=== PATIENT | male | born 1955 | race African-American/Black ===

== ENCOUNTER 2019-11-17 10:22 | Inpatient (IN) | payer OTHER ==
[2019-11-17] VITALS (33 sets, daily range): BP systolic 86–119; BP diastolic 50–97
[~2019-11-17] VITALS: Ht 193 cm; Wt 80.6 kg
--- NOTE | ~2019-11-17 | EMS ---
[address] [address] EMS Patient Care Report Name: JOHN SWANSON Room #: 237-P ADM IN M.R.#: [id number] Admission: 11/17/19 Attend Phys: Joel Murphy MD Discharge: Date of : 53 Report #: [id number] THIS REPORT FOR: //name// Report Transmitted: 11/21/2019 08:26 EMS Care Summary [place], [place]/[facility] Incident [id number] @ 11/17/2019 09:50 Incident Location [address] [place] [address] Patient JOHN SWANSON Male, 64 Years 1955 Patient Address [address] [place] [address] Patient History Alzheimer's,Gastro-Esophageal Reflux Disease (GERD),Constipation,Dysphagia,Type 2 Diabetes, Patient Allergies No known allergies, Patient Medications Depakote, Senna, Albuterol, Chief Complaint Distended abdomen Disposition Transported No Lights/[place] Dispatch Reason Abdominal Pain/Problems Transported To [facility] Narrative Called to the scene for a sick. Upon arrival, pt was brought out to the ambulance via wheel chair by [place] Staff. The were concerned about a distended [address] [address] EMS Patient Care Report Name: JOHN SWANSON Room #: 237-P ADM IN Demarco#: [id number] Admission: 11/17/19 Attend Phys: Joel Murphy MD Discharge: Date of : 53 Report #: [id number] abdomen that was getting worse over a couple of days and a decrease in the SaO2. They had placed him on a simple facemask @ 2 lpm. Pt was moved to the EMS cot and loaded into the ambulance w/o incident. Vitals obtained. O2 increased to 8 lpm. Pt said he was breathing better. 4 Lead. En route; no changes. RR to [facility]. Vitals repeated. Arrived: pt taken to ER, pt care & report to ER staff. Initial Vitals @10:09P: 122,R: 47,[place] Suspected: false @10:07P: 118,R: 14,BP: 94/69,Pain: 2/10,GCS: 15,SpO2: 90,Revised Trauma: 12, @10:12P: 143,R: 20,BP: 97/72,GCS: 15,SpO2: 95,Revised Trauma: 12, Assessments @09:58MENTAL:Person Oriented,Time Oriented,Place Oriented,Event Oriented,SKIN:HEENT:LUNG SOUNDS:Left Upper: Distension,Right Lower: Distension,Right Upper: Distension,Right Upper: Tenderness,Left Lower: Distension,Right Upper: Other,ABDOMEN:Left Upper: Distension,Right Lower: Distension,Right Upper: Distension,Right Upper: Tenderness,Left Lower: Distension,Right Upper: Other,PELVIS//GI:EXTREMITIES:Left Leg: Other,Right Arm: Other,Right Leg: Other,Left Arm: Other,PULSE:Radial: 2+ Normal,NEURO: Impression Abdominal Pain Procedures @09:58ALS AssessmentResponse: UnchangedSucceeded@10:01StretcherResponse: Unchanged@PTAOxygen FlowRate: 2 Device: Simple Face Mask (SFM) Response: UnchangedFailed@10:05Oxygen FlowRate: 8 Device: Simple Face Mask (SFM) Response: ImprovedSucceeded Timeline RELIEF MAP MODELER,Oxygen FlowRate: 2 Device: Simple Face Mask (SFM) Response: UnchangedFailed, 09:47,Call Received 09:47,Dispatch Notified 09:50,Dispatched 09:51,En Route 09:57,On Scene 09:58,At Patient 09:58,ALS Assessment,Response: UnchangedSucceeded, 10:01,Stretcher,Response: Unchanged 10:05,Oxygen FlowRate: 8 Device: Simple Face Mask (SFM) Response: ImprovedSucceeded, 10:07,BP: 94/69 M,PULSE: 118,RR: 14 R,SPO2: 90 Ox,ETCO2: ,BG: ,PAIN: 2,GCS: 15, 10:09,BP: / M,PULSE: 122,RR: 47 R,SPO2: Ox,ETCO2: ,BG: ,PAIN: ,GCS: , 10:10,Depart Scene 10:12,BP: 97/72 M,PULSE: 143,RR: 20 R,SPO2: 95 Ox,ETCO2: ,BG: ,PAIN: ,GCS: 15, [address] [address] EMS Patient Care Report Name: JOHN SWANSON Room #: 237-P [facility] IN [facility]#: [id number] Admission: 11/17/19 Attend Phys: Joel Murphy MD Discharge: Date of : 53 Report #: [id number] 10:26,At Destination 10:36,Call Closed Disclaimer v1.1 Copyright 2020 [email or web address] This EMS Care Summary contains data elements from the applicable legal record (which may be displayed differently). It is designed to provide pertinent information for the following purposes: continuity of care, clinical quality, and state data reporting. The complete legal record is available to ED staff and administrators of the receiving hospital in [employer]'s Patient Tracker. All data is provided "as is."
--- NOTE | ~2019-11-17 | EKG ---
[facility] [place] [address] ELECTROCARDIOGRAM REPORT Name: JOHN SWANSON Room #: 237-P ADM IN M.R.#: [id number] Admission: 11/17/19 Attend Phys: Joel Murpyh MD Discharge: Date of : 53 Report #: [id number] THIS REPORT FOR: cc: FAM - Family physician unknown FAM - Family physician unknown Camelia Denise MD ~ THIS REPORT FOR: //name// [facility] Test Date: 2019-11-17 Test Time: 20:53:41 Pat Name: JOHN SWANSON Department: Room: 237 P Gender: M Refuge Worker: MARY : 1955 Requested By: Nita Villalta Order Number: [id number] MD: Measurements Intervals [place] Rate: 97 P: 52 KS: 131 QRS: -58 QRSD: 123 T: 32 QT: 382 QTc: 486 Interpretive Statements Sinus rhythm Probable left atrial enlargement RBBB and LAFB Baseline wander in lead(s) II,III,aVF Compared to ECG 05/20/2011 23:15:52 Left anterior fascicular block now present Right bundle-branch block now present Sinus tachycardia no longer present Ventricular premature complex(es) no longer present [email or web address] By: 52 52 Epiphany EpiphanyMD /NII
[~2019-11-17 10:22] MED LIST: AMBEREN; BACTRIM DS TAB1 EACH PO; CELEXA 20 MG TA20 M1 PO; CENTRUM MU9 MG/15 ML PT; CLONAZEPAM; CLONAZEPAM 0.50.5 M1; CLONAZEPAM PT; CYCLOBENZAPRINE10 MG; DUONEB 2.5-0.5 M3 ML; ENOXAPARIN40 MG/0.1 SUBQ; FENTANYL; FENTANYL1 EAC1 TOP; FERROUS SU PT; FERROUS SULFATE; FLEXERIL; FLEXERIL PT; FLUSH; GLUCERNA; GLUCERNA 1.2 PT; H20 FLUSH PT; HYCET 7.5 MG-3473 ML PT; HYDROCODON-ACE1 EAC8; IRON325 PO; JUVEN; LANTISEPTIC15 ML TP; MOM PT; MULTIVITAM9 MG/15 ML PT; OMEPRAZOLE20 M2 PO; PROSOURCE275 GM PT; SENNA CONCENTR8.6 MG; SENNA S TABLET1 EACH PER TUBE; THERA PLUS; TYLENOL EX167 MG/5 M PT; VITAMIN C; VITAMINC500; VITAMINC500 PT; XENADERM OINTME30 GM TP; ZINC SULFATE 2220 MG PT; [UNRECOGNIZED DRUG - OTHER] IN
[2019-11-17 10:58] LABS: HEMATOCRIT 47.9 % (42.0-52.0); HEMOGLOBIN 15.8 gm/dL (14.0-18.0); MCH 27.9 pg (26.0-34.0); MCHC 32.9 g/dL (28.0-37.0); MCV 84.8 fL (80.0-100.0); PLATELET COUNT 566 thou/uL (150-400); RBC 5.65 mil/uL (4.50-6.00); RDW 16.4 % (10.5-14.5); WBC 20.9 thou/uL (4.0-11.0)
[2019-11-17 11:06] LABS: CALCIUM 9.2 mg/dL (8.5-10.1); CREATININE 2.9 mg/dL (0.7-1.3); POTASSIUM 3.2 mmol/L (3.5-5.1)
[2019-11-17 11:09] LABS: BE(vivo) 1.4 mmol/L (-2 to +3); PCO2 32.4 mmHg (35.0-45.0); PO2 44.2 mmHg (80.0-100.0); pH 7.487 (7.360-7.450); sO2 84.2 % (92.0-98.0)
[2019-11-17 11:15] LABS: ABSOLUTE NEUTROPHILS 18.4 thou/uL (1.4-8.2); ATYPICAL LYMPHS 1 %
[2019-11-17 11:17] LABS: LARGE PLATELETS SEVERAL
[2019-11-17 11:44] LABS: URINE BLOOD 3+ (Negative); URINE CLARITY CLEAR; URINE GLUCOSE-RANDOM* TRACE (Negative); URINE KETONES 1+ (Negative); URINE NITRITE-REFLEX NEGATIVE (Negative); URINE PROTEIN (DIPSTICK) 3+ (Negative); URINE SPECIFIC GRAVITY 1.025 (1.005-1.035)
[2019-11-17 11:47] LABS: ICTOTEST (BILI CONFIRMATORY) Negative (Negative); URINE BILIRUBIN NEGATIVE (Negative); URINE LEUKOCYTES-REFLEX 3+ (Negative)
[2019-11-17 11:48] LABS: URINE COLOR BROWN
[2019-11-17 11:54] LABS: BACTERIA-REFLEX >30 Many /HPF (None Seen); CRYSTALS None Seen /LPF (None Seen); HYALINE CASTS 0-3 Few /LPF (None Seen); SQUAMOUS 0-3 Few /LPF (0-3); TRANSITIONAL EPITHEL CELL 0-3 Few /LPF (None Seen); URINE WBC-REFLEX >25 Many /HPF (0-5)
[2019-11-17] MEDS ORDERED: ALBUTEROL2.5 MG/0.1 INH (12:03)
[2019-11-17] MEDS ORDERED: DEPAKOTE125 MG PO (12:04)
[2019-11-17] MEDS ORDERED: TYLENOL325 MG PO (12:05)
[2019-11-17] MEDS ORDERED: VITAMIN D31250 MCG PO (12:07)
[2019-11-17 14:20] LABS: BE(vivo) -1.3 mmol/L (-2 to +3); HCO3 21.7 mmol/L (22.0-26.0); PCO2 31.6 mmHg (35.0-45.0); PO2 66.2 mmHg (80.0-100.0); pH 7.454 (7.360-7.450); sO2 94.2 % (92.0-98.0)
--- NOTE | 2019-11-17 16:44 | NUR ---
CONSULTED TO PLACE A CENTRAL LINE FOR A PATIENT ADMITTED TO ICU FOR SEPSIS AND COVID R/O. CONSENT AND ORDER NOTED. PATIENT IS SEDATED AND UNABLE TO RESPOND TO TEACHING. A #6F TRIPLE LUMEN POWER INJECTABLE JACC CENTRAL LINE WAS PLACED PER POLICY. LINE IS 25CM AND ADVANCED WITHOUT DIFFICULTY TO 7CM EXTERNAL. A STAT CHEST XRAY WAS ORDERED TO VERIFY PLACEMENT.
[2019-11-17 18:37] LABS: HEMATOCRIT 42.1 % (42.0-52.0); MCH 27.4 pg (26.0-34.0); MCV 85.5 fL (80.0-100.0); RBC 4.92 mil/uL (4.50-6.00); RDW 16.2 % (10.5-14.5); WBC 18.4 thou/uL (4.0-11.0)
[2019-11-17 18:39] LABS: CALCIUM 7.8 mg/dL (8.5-10.1); CREATININE 2.2 mg/dL (0.7-1.3)
[2019-11-17 18:41] LABS: POTASSIUM 2.7 mmol/L (3.5-5.1)
[2019-11-17 18:50] LABS: HEMOGLOBIN 13.5 gm/dL (14.0-18.0)
[2019-11-17 18:51] LABS: PLATELET COUNT 439 thou/uL (150-400)
[2019-11-17 19:19] LABS: ABSOLUTE NEUTROPHILS 16.6 thou/uL (1.4-8.2); ANISOCYTOSIS 1+; PLATELET ESTIMATE INCREASED
--- NOTE | 2019-11-17 19:49 | NUR ---
PT ARRIVED TO UNIT AT 1520. PT HAD NO PERSONAL BELONGING WITH HIM OTHER THAN JUDE LIFT SHEET UNDERNEATH HIM. SHEET REMOVED AND PLACED IN PT'S ROOM. PT DENIES PAIN AT THIS TIME. PT IS IN COVID RULE-OUT PRECAUTIONS. SCD'S PLACED. DORSEY ALREADY IN PLACE WITH MINIMAL UO. PT CHAIRLIFT OPERATOR STRIP PRINTED AND ON CHART. VASCULAR ACCESS NURSE HERE TO PLACE CENTRAL LINE. PT'S DPOA SISTER SASHA WAS CALLED AND SHE GAVE TELEPHONE CONSENT TO RN AND VASCULAR ACCESS NURSE.
--- NOTE | 2019-11-17 20:14 | NUR ---
DR. BECK GAVE ORDER TO PLACE NG TUBE. DR VORA WHILE ROUNDING ON PT STATED TO CONSULT GI AND NOT TO PLACE NG TUBE AT THIS TIME. DR BECK MADE AWARE AND STATED OK AND THAT HE AGREED NOT TO PLACE AT THIS TIME.
--- NOTE | 2019-11-17 21:04 | NUR ---
At shift change, pt went to extreme tachy at approximately 1926 in HR 160-170s for 9 mins. He then went to afib RVR HR 120-170s for less than two minutes. He then converted back to sinus rhythm. Nita MARTÍNEZ was notified and stat ekg was ordered. ekg was performed and results of SR with HR of 97 reported to EXAM PROCTOR. EXAM PROCTOR states to continue to monitor and report any further episodes. if problem persist they will consult cardiology and place pt on amio or cardizem drip
[2019-11-17 23:07] LABS: CALCIUM 7.7 mg/dL (8.5-10.1); CREATININE 1.7 mg/dL (0.7-1.3); POTASSIUM 3.5 mmol/L (3.5-5.1)
[2019-11-18] VITALS (32 sets, daily range): BP systolic 84–128; BP diastolic 56–76
[2019-11-18 04:53] LABS: BE(vivo) -2.2 mmol/L (-2 to +3); HCO3 23.3 mmol/L (22.0-26.0); PCO2 42.4 mmHg (35.0-45.0); PO2 70.6 mmHg (80.0-100.0); pH 7.357 (7.360-7.450); sO2 93.6 % (92.0-98.0)
[2019-11-18 06:16] LABS: ABSOLUTE NEUTROPHILS 14.6 thou/uL (1.4-8.2); HEMATOCRIT 37.2 % (42.0-52.0); HEMOGLOBIN 11.8 gm/dL (14.0-18.0); LYMPHOCYTES 4.1 % (24.0-44.0); MCH 27.3 pg (26.0-34.0); MCHC 31.8 g/dL (28.0-37.0); MCV 85.9 fL (80.0-100.0); MONOCYTES 7.6 % (1.0-8.0); PLATELET COUNT 399 thou/uL (150-400); POLYS 88.3 % (36.0-66.0); RBC 4.33 mil/uL (4.50-6.00); RDW 16.6 % (10.5-14.5); WBC 16.5 thou/uL (4.0-11.0)
[2019-11-18 06:34] LABS: CALCIUM 7.4 mg/dL (8.5-10.1); CREATININE 1.3 mg/dL (0.7-1.3); POTASSIUM 3.7 mmol/L (3.5-5.1)
[2019-11-18 06:39] LABS: ALBUMIN 2.2 g/dL (3.4-5.0); MAGNESIUM 2.1 mg/dL (1.8-2.4); TOTAL PROTEIN 5.9 g/dL (6.4-8.2)
--- NOTE | 2019-11-18 08:20 | EKG ---
[facility] [place] [address] ELECTROCARDIOGRAM REPORT Name: JOHN SWANSON Room #: 237-P ADM IN M.R.#: [id number] Admission: 11/17/19 Attend Phys: Joel Murphy MD Discharge: Date of : 53 Report #: [id number] THIS REPORT FOR: cc: FAM - Family physician unknown FAM - Family physician unknown Stefan Sandoval MD [facility] THIS REPORT FOR: //name// [facility] ED Test Date: 2019-11-17 Test Time: 10:42:21 Pat Name: JOHN SWANSON Department: Room: [facility] Gender: M Optimization Engineer: [facility] : 1955 Requested By: Dougie Prado Order Number: [id number] MD: Stefan Sandoval Measurements Intervals [place] Rate: 121 P: 46 NC: 131 QRS: -101 QRSD: 118 T: 19 QT: 322 QTc: 457 Interpretive Statements Sinus tachycardia ventricular premature complexes RBBB and LAFB Compared to ECG 05/20/2011 23:15:52 Premature ventricular complexes not present Left anterior fascicular block now present Right bundle-branch block now present Electronically Signed On 11-18-2019 8:18:03 CDT by Stefan Sandoval [email or web address] <ELECTRONICALLY SIGNED> By: Stefan Sandoval MD, [facility] 11/18/19 0818 1042 1042 Stefan Sandoval MD, [facility] /EPI
--- NOTE | 2019-11-18 08:28 | EKG ---
[facility] [place] [address] ELECTROCARDIOGRAM REPORT Name: KIKIKENNETHJOHN P Room #: 237-P ADM IN M.R.#: [id number] Admission: 11/17/19 Attend Phys: Joel Murphy MD Discharge: Date of : 53 Report #: [id number] THIS REPORT FOR: cc: FAM - Family physician unknown FAM - Family physician unknown Stefan Sandoval MD [facility] THIS REPORT FOR: //name// [facility] Test Date: 2019-11-17 Test Time: 20:53:41 Pat Name: JOHN SWANSON Department: Room: 237 P Gender: M Cw Operator: MARY : 1955 Requested By: Nita Villalta Order Number: [id number] MD: Stefan Sandoval Measurements Intervals [place] Rate: 97 P: 52 HI: 131 QRS: -58 QRSD: 123 T: 32 QT: 382 QTc: 486 Interpretive Statements Sinus rhythm RBBB and LAFB Baseline wander in lead(s) II,III,aVF Compared to ECG 05/20/2011 23:15:52 Sinus tachycardia no longer present Ventricular premature complex(es) no longer present Electronically Signed On 11-18-2019 8:26:11 CDT by Stefan Sandoval [email or web address] <ELECTRONICALLY SIGNED> By: Stefan Sandoval MD, [facility] 11/18/19825 52 52 Stefan Sandoval MD, [facility] /EPI
--- NOTE | 2019-11-18 14:02 | NUR ---
PATIENT AWAKE AND ORIENTED TO SELF THIS SHIFT. DOES NOT MAKE ANY ATTEMPT TO MOVE OR ASSIST IN MOVEMENT. PATIENT BECOMES AGITATED AND USES RIGHT HAND TO PUSH WHEN ATTEMPTING TO TURN PATIENT. NG TUBE WAS PLACED SUCCESSFULLY THIS SHIFT, PT COMBATIVE DURING PLACEMENT. VERIFIED WITH XRAY. INSTRUCTED TO LEAVE OFF SUCTION BY GI NATIONAL GUARD MEMBER UNTIL PT GI PROCEDURE COMPLETED. PT REMOVED NG TUBE BY SELF, NOTIFIED GI. PATIENT SCHEDULED FOR FLEX SIG THIS SHIFT, PHONE CONSENT OBTAINED BY DPOA. PT REMAINS ON 10L NC, O2 SATS >94%. FALL PRECAUTIONS IN PLACE.
--- NOTE | 2019-11-18 16:19 | NUR ---
INITIAL ASSESSMENT: NICK reviewed chart and spoke with nursing and attending physician. Pt was admitted from [facility] due to bowel obstruction/pnemonia. Pt is currently in the ICU. Pt is in Enhanced Isolation to r/o COVID-19. Pt's test is negative. Pt with hx of CVA/Alzheimer's/DM. Surgery and GI consulted. Pt to have flex-sig today. Pt is now a DNR. NICK spoke with pt's sister, Hernán, via phone. Introduced role of NICK. Pt lives in the terminal worker care unit at [facility] since 2010. Pt is total care at the facility. Pt's dtr had questions regarding pt's care at [facility]. SW offered to have the [facility] post-acute liaison follow up with her. Pt's sister agreeable. transit planner to fax clinical updates to [facility]. NICK notified [facility] liaison. The DON and/or Sql Database Programmer will reach out to pt's sister to follow up. NICK is following to assist as needed with discharge planning.
--- NOTE | 2019-11-18 21:54 | NUR ---
ASSUMED PT CARE AT 1900. PT FOLLWS COMMANDS; WILL SQUEEZ RIGHT HAND AND WIGGLE RIGHT TOES. NO MOVEMENT NOTED ON THE LEFT SIDE WHICH IS ALSO CONTRACTED. L EYE PUPIL IS DILATED AND FIXED AT 6CM WITH NO REACTION TO LIGHT NOTED. PT STATES INAPPROPRIATE WORDS AT TIMES.
[2019-11-19] VITALS (14 sets, daily range): BP systolic 72–152; BP diastolic 45–129
[2019-11-19 05:27] LABS: HEMATOCRIT 34.4 % (42.0-52.0); HEMOGLOBIN 10.9 gm/dL (14.0-18.0); MCH 27.3 pg (26.0-34.0); MCHC 31.6 g/dL (28.0-37.0); MCV 86.3 fL (80.0-100.0); RBC 3.99 mil/uL (4.50-6.00); RDW 16.6 % (10.5-14.5); WBC 16.7 thou/uL (4.0-11.0)
[2019-11-19 05:40] LABS: CALCIUM 7.3 mg/dL (8.5-10.1); CREATININE 0.9 mg/dL (0.7-1.3); POTASSIUM 3.1 mmol/L (3.5-5.1)
--- NOTE | 2019-11-19 14:16 | NUR ---
assumed care of pt at 0700. pt aox1 in no acute distress, complains of abdominal pain times - good relief with morphine. requiring 10L via HFNC. pulled out ng tube while restrained... hospitalist and preop notified. loose bm this morning. remains very contracted. otherwise voicing no concerns or complaints. spoke with sister alina by phone regarding plan of care. agreeable with surgery recommendations. plans for partial colectomy and colostomy this afternoon. emilym.
--- NOTE | 2019-11-19 14:48 | NUR ---
NICK reviewed chart and spoke with attending physician. Pt remains in ICU on 10L high flow O2. Pt will be made NPO at midnight and plan for partial colectomy and colostomy tomorrow per surgery. NICK updated [facility] post-acute liaison. NICK is following to assist as needed with discharge planning.
--- NOTE | 2019-11-19 15:00 | 2DMMODE ---
[facility] [address] [place] [place] [address] 2 D/M-MODE ECHOCARDIOGRAM Name: JOHN SWANSON Andres Room #: 237-P ADM IN M.R.#: [id number] Admission: 11/17/19 Attend Phys: Joel Murphy MD Discharge: Date of : 53 Report #: [id number] THIS REPORT FOR: cc: FAM - Family physician unknown FAM - Family physician unknown Stefan Sandoval MD [facility] ~ APPROVED REPORT Study performed: 11/19/2019 13:59:40 EXAM: Comprehensive 2D, Doppler, and color-flow Echocardiogram Patient Location: ICU Room #: [facility] Status: routine BSA: 2.04 HR: 77 bpm BP: 92/53 mmHg Other Information Study Quality: Technically Difficult Technically limited study due to lung disease, inability to position patient. Indications Diabetes Tachycardia 2D Dimensions IVSd: 11.16 (7-11mm) LVOT Diam: 21.32 (18-24mm) LVDd: 43.85 mm PWd: 11.29 (7-11mm) Ascending Ao: 29.14 (22-36mm) LVDs: 24.96 (25-40mm) Aortic Root: 33.47 mm IVC: 25.00 mm Aortic Valve AoV Peak Vega.: 1.25 m/s AO Peak Gr.: 6.20 mmHg LVOT Max P.02 mmHg LVOT Max V: 1.00 m/s NORMA Vmax: 2.87 cm2 Pulmonary Valve PV Peak Vega.: 1.00 m/s PV Peak Gr.: 4.07 mmHg Tricuspid Valve [facility] [address] [address] 2 D/M-MODE ECHOCARDIOGRAM Name: JOHN SWANSON Room #: 237-P ADM IN Manuel.#: [id number] Admission: 11/17/19 Attend Phys: Joel Murphy MD Discharge: Date of : 53 Report #: [id number] TR Peak Vega.: 2.64 m/s TR Peak Gr.: 28.10 mmHg PA Pressure: 38.00 mmHg Left Ventricle The left ventricle is normal size. Regional wall motion is not well visualized but grossly normal. There is normal left ventricular wall thickness. The left ventricular systolic function is normal. The left ventricular ejection fraction is within the normal range. LVEF is 55-60%. This study is not technically sufficient to allow evaluation of the LV diastolic function. Right Ventricle The right ventricle is normal size. The right ventricular systolic function is normal. Atria The left atrium size is normal. The right atrium size is normal. Aortic Valve The aortic valve is normal in structure. No aortic regurgitation is present. There is no aortic valvular stenosis. Mitral Valve The mitral valve is normal in structure. Trace mitral regurgitation. No evidence of mitral valve stenosis. Tricuspid Valve The tricuspid valve is normal in structure. There is trace tricuspid regurgitation. Estimated PAP 38 mmHg. There is mild pulmonary hypertension. Pulmonic Valve The pulmonary valve is normal in structure. There is no pulmonic valvular regurgitation. Great Vessels The aortic root is normal in size. IVC is dilated and collapses <50% with inspiration. Pericardium There is no pericardial effusion. <Conclusion> The left ventricular systolic function is normal. [facility] [address] [address] 2 D/M-MODE ECHOCARDIOGRAM Name: JOHN SWANSON Room #: 237-P ADM IN .R.#: [id number] Admission: 11/17/19 Attend Phys: Joel Murphy MD Discharge: Date of : 53 Report #: [id number] Regional wall motion is not well visualized but grossly normal. LVEF is 55-60%. The aortic valve is normal in structure. No aortic regurgitation or stenosis. The mitral valve is normal in structure. Trace mitral regurgitation. There is trace tricuspid regurgitation. Estimated pulmonary artery pressure of 38 mmHg. There is no pericardial effusion. <ELECTRONICALLY SIGNED> By: Stefan Sandoval MD, FACC 11/19/19 1458 1458 1458 Stefan Sandoval MD, FACC /INF
[2019-11-19 17:39] LABS: BE(vivo) -5.9 mmol/L (-2 to +3); HCO3 20.2 mmol/L (22.0-26.0); PCO2 42.1 mmHg (35.0-45.0); sO2 91.5 % (92.0-98.0)
--- NOTE | 2019-11-19 18:42 | NUR ---
pt returned to floor intubated, s/p subtotal colectomy. sedated. art line placed in OR. guard entrance registrar on floor, putting in orders.
[2019-11-19 19:05] LABS: HCO3 19.4 mmol/L (22.0-26.0); PCO2 37.7 mmHg (35.0-45.0); PO2 74.7 mmHg (80.0-100.0); sO2 94.2 % (92.0-98.0)
[2019-11-19 19:07] LABS: pH 7.329 (7.360-7.450)
[2019-11-19 19:12] LABS: HEMATOCRIT 40.1 % (42.0-52.0); HEMOGLOBIN 12.9 gm/dL (14.0-18.0); MCH 27.6 pg (26.0-34.0); MCHC 32.1 g/dL (28.0-37.0); MCV 85.9 fL (80.0-100.0); PLATELET COUNT 476 thou/uL (150-400); RBC 4.67 mil/uL (4.50-6.00); RDW 16.9 % (10.5-14.5); WBC 4.2 thou/uL (4.0-11.0)
[2019-11-19 19:22] LABS: CALCIUM 6.5 mg/dL (8.5-10.1); CREATININE 0.9 mg/dL (0.7-1.3); MAGNESIUM 1.6 mg/dL (1.8-2.4); POTASSIUM 3.2 mmol/L (3.5-5.1)
[2019-11-19 19:25] LABS: INR 1.1; PROTIME 11.6 Seconds (9.3-11.4)
[2019-11-19 19:39] LABS: ABSOLUTE NEUTROPHILS 3.5 thou/uL (1.4-8.2); LARGE PLATELETS OCCASIONAL; NUCLEATED RBCS 1 /100WBC
--- NOTE | 2019-11-19 22:07 | NUR ---
PATIENT NG TUBE ADVANCED 12CM MOST RECENT XRAY STATED. NGT NOW MEASURES AT 62CM AT THE LEFT NARE. PLACEMENT CONFIRMED VIA AUSCULATION OF AIR BOLUS AND PRESENCE OF GASTRIC CONTENT IN TUBING.
[2019-11-20] VITALS (59 sets, daily range): BP systolic 74–165; BP diastolic 11–113
--- NOTE | 2019-11-20 01:19 | NUR ---
SINCE 190 PATIENT HAS ONLY PRODUCED 60ML URINE. CVP WAS CHECKED WITH A READING OF 11. DR. SINGH NOTIFIED. ORDEREDS OBTAINED TO GIVE 1L BOLUS.
[2019-11-20 02:12] LABS: BE(vivo) -10.6 mmol/L (-2 to +3); HCO3 14.8 mmol/L (22.0-26.0); PCO2 31.5 mmHg (35.0-45.0); PO2 418.4 mmHg (80.0-100.0); sO2 99.8 % (92.0-98.0)
[2019-11-20 02:14] LABS: pH 7.289 (7.360-7.450)
[2019-11-20 05:24] LABS: ALBUMIN 1.3 g/dL (3.4-5.0); CREATININE 1.2 mg/dL (0.7-1.3); POTASSIUM 3.9 mmol/L (3.5-5.1); TOTAL BILIRUBIN 0.8 mg/dL (0.2-1.0); TOTAL PROTEIN 3.9 g/dL (6.4-8.2)
[2019-11-20 05:39] LABS: HEMATOCRIT 38.1 % (42.0-52.0); HEMOGLOBIN 12.1 gm/dL (14.0-18.0); MCH 27.9 pg (26.0-34.0); MCHC 31.8 g/dL (28.0-37.0); MCV 87.7 fL (80.0-100.0); RBC 4.34 mil/uL (4.50-6.00); RDW 17.7 % (10.5-14.5); WBC 10.5 thou/uL (4.0-11.0)
[2019-11-20 06:01] LABS: PLATELET COUNT 304 thou/uL (150-400)
[2019-11-20 06:06] LABS: CALCIUM 5.5 mg/dL (8.5-10.1)
[2019-11-20 11:46] LABS: ABSOLUTE NEUTROPHILS 9.5 thou/uL (1.4-8.2); ANISOCYTOSIS 1+; METAMYELOCYTES 2 %
[2019-11-20 15:19] LABS: HEMATOCRIT 33.4 % (42.0-52.0); HEMOGLOBIN 10.6 gm/dL (14.0-18.0); MCH 27.3 pg (26.0-34.0); MCHC 31.9 g/dL (28.0-37.0); MCV 85.7 fL (80.0-100.0); RBC 3.9 mil/uL (4.50-6.00); RDW 17.2 % (10.5-14.5)
[2019-11-20 15:36] LABS: ALBUMIN 1.8 g/dL (3.4-5.0); CALCIUM 6.3 mg/dL (8.5-10.1); CREATININE 1.3 mg/dL (0.7-1.3); MAGNESIUM 1.5 mg/dL (1.8-2.4); PHOSPHORUS 1.6 mg/dL (2.5-4.9); POTASSIUM 3.6 mmol/L (3.5-5.1)
--- NOTE | 2019-11-20 15:55 | NUR ---
SW reviewed chart and spoke with attending physician. Pt is POD#1 and is currently intubated. Remains in ICU. SW updated [facility] post acute liaison. mission planner to fax info to [facility] for review. NICK is following to assist as needed with discharge planning.
--- NOTE | 2019-11-20 19:15 | NUR ---
SASHA SWANSON-DAUGHTER CALLED ONCE TODAY. UPDATED ON PT'S STATUS. DR. RUTH, DR. HARTLEY PRESENT TO SEE PT. TITRATING LEVOPHED TO KEEP MAP>65, ALBUMIN GIVEN, SEE ORDER. BERT INTERMITTENTLY DAMPENING, LACTIC ACID 3.1, DR. SINGH PRESENT. UPDATED ON ALBUMIN AND FLUID STATUS, SEE ORDERS. REPORT GIVEN TO CALLUM HERRERA.
[2019-11-20 21:33] LABS: HEMATOCRIT 28.5 % (42.0-52.0); HEMOGLOBIN 9.3 gm/dL (14.0-18.0); MCH 27.7 pg (26.0-34.0); MCHC 32.5 g/dL (28.0-37.0); MCV 85.3 fL (80.0-100.0); RBC 3.34 mil/uL (4.50-6.00); RDW 17.1 % (10.5-14.5); WBC 11.7 thou/uL (4.0-11.0)
[2019-11-20 21:42] LABS: CALCIUM 6.4 mg/dL (8.5-10.1); CREATININE 1.2 mg/dL (0.7-1.3); MAGNESIUM 1.5 mg/dL (1.8-2.4); POTASSIUM 3.3 mmol/L (3.5-5.1)
--- NOTE | 2019-11-20 22:02 | NUR ---
PATIENT CONTINUES TO HAVE 5-19 BEAT RUNS OF AFIB RVR IN THE 130'S-150'S. PER CARDIOLOGIES NOTE THEY SIGNED OFF ON PATIENTS CASE YESTERDAY (11/20/19). DR. SINGH WAS NOTIFIED OF THE ABOVE. STAT LABS WERE DRAWN. K:3.3. M.5. IV POTASSIUM AND MAGNESIUM NOW INFUSING. WILL RECHECK LABS PER ELECTROLYTE REPLACEMENT PROTOCOL.
[2019-11-21] VITALS (9 sets, daily range): BP systolic 85–109; BP diastolic 46–58
--- NOTE | 2019-11-21 02:31 | NUR ---
PATIENT SUSTAINED SINUS TACHYCARDIA FOR 14 MINS FROM 210 TO 224. EKG WAS TAKEN IN THAT PERIOD AND PLACED IN CHART. DR. SINGH NOTIFIED. AMIO GTT ORDERED.
[2019-11-21 03:04] LABS: POTASSIUM 3.7 mmol/L (3.5-5.1)
[2019-11-21 04:55] LABS: BE(vivo) -5.4 mmol/L (-2 to +3); HCO3 19.9 mmol/L (22.0-26.0); PCO2 37.9 mmHg (35.0-45.0); PO2 89.2 mmHg (80.0-100.0); pH 7.338 (7.360-7.450); sO2 96.4 % (92.0-98.0)
[2019-11-21 05:58] LABS: ABSOLUTE NEUTROPHILS 12.8 thou/uL (1.4-8.2); HEMATOCRIT 25.9 % (42.0-52.0); HEMOGLOBIN 8.4 gm/dL (14.0-18.0); LYMPHOCYTES 2.9 % (24.0-44.0); MCH 27.7 pg (26.0-34.0); MCHC 32.3 g/dL (28.0-37.0); MCV 85.8 fL (80.0-100.0); MONOCYTES 3.9 % (1.0-8.0); PLATELET COUNT 204 thou/uL (150-400); POLYS 93.2 % (36.0-66.0); RBC 3.02 mil/uL (4.50-6.00); RDW 17.2 % (10.5-14.5); WBC 13.8 thou/uL (4.0-11.0)
[2019-11-21 06:21] LABS: ALBUMIN 2.2 g/dL (3.4-5.0); CALCIUM 6.3 mg/dL (8.5-10.1); CREATININE 1.1 mg/dL (0.7-1.3); POTASSIUM 3.6 mmol/L (3.5-5.1); TOTAL BILIRUBIN 1.3 mg/dL (0.2-1.0); TOTAL PROTEIN 4.6 g/dL (6.4-8.2)
--- NOTE | 2019-11-21 08:48 | EKG ---
[facility] [place] [address] ELECTROCARDIOGRAM REPORT Name: JOHN SWANSON Andres Room #: 237-P ADM IN M.R.#: [id number] Admission: 11/17/19 Attend Phys: Joel Murphy MD Discharge: Date of : 53 Report #: [id number] THIS REPORT FOR: cc: ROSHAN - Family physician unknown FAM - Family physician unknown Stefan Sandoval MD [facility] THIS REPORT FOR: //name// [facility] Test Date: 2019-11-21 Test Time: 02:23:11 Pat Name: JOHN SWANSON Department: Room: [facility] Gender: M Scientific Advisor: Mari Brown RN : 1955 Requested By: Ángel Conrad Order Number: [id number] MD: Stefan Sandoval Measurements Intervals [place] Rate: 155 P: 0 OK: 68 QRS: -72 QRSD: 119 T: 59 QT: 326 QTc: 524 Interpretive Statements Atrial flutter Right bundle branch block Low voltage Compared to ECG 11/17/2019 20:53:41 Atrial flutter has replaced sinus rhythm Electronically Signed On 11-21-2019 8:46:10 CDT by Stefan Sandoval [email or web address] <ELECTRONICALLY SIGNED> By: Stefan Sandoval MD, [facility] 11/21/19 0846 2 2 Stefan Sandoval MD, [facility] /EPI
--- NOTE | 2019-11-21 11:31 | NUR ---
FAXED CLINICAL UPDATE TO [facility] SPOKE WITH MARILYNN IN ADM SHE RECEIVED UPDATE. DP TO FOLLOW.
[2019-11-21 11:37] LABS: BE(vivo) -5.7 mmol/L (-2 to +3); HCO3 19.3 mmol/L (22.0-26.0); PCO2 35.3 mmHg (35.0-45.0); PO2 98.9 mmHg (80.0-100.0); pH 7.355 (7.360-7.450); sO2 97.3 % (92.0-98.0)
--- NOTE | 2019-11-21 14:57 | NUR ---
SW reviewed chart and spoke with nursing and attending physician. Pt is s/p bowel resection. Pt is currently intubated and in ICU. CPAP trials initiated. Pt has NG tube in place. SW provided update to [facility] post-acute liaison. NICK is following to assist as needed with discharge planning.
--- NOTE | 2019-11-21 17:32 | NUR ---
OSTOMY NURSE- PATIENT 2ND DAY POST-OP FOLLOWING SUBTOTAL COLECTOMY WITH END ILEOSTOMY FOR OBSTRUCTING SIGMOID MASS ON 11/19/[address] Chase VORA. PATIENT REMAINS INTUBATED IN ICU. HE IS FAIRLY ALERT, BUT HE RESIDES AT [facility] AND APPEARS TO HAVE SOME COGNITIVE DEFICITS - PARTICIPATION IN OSTOMY CARE DOUBTFUL. ABDOMEN NON-DISTENDED, SOFT. DRESSING INTACT TO MIDLINE INCISION, AND RIGHT ABDOMEN J-TUBE CLAMPED. ILEOSTOMY LLQ APPROXIMATELY 1 1/2 INCHES, PROTRUDES WELL, BEEFY RED WITH THIN LAYER OF PRADO MUCOSA ALONG MEDIAL ASPECT. MUCOCUTANEOUS INCISION WELL APPROXIMATED, PERISTOMAL SKIN INTACT. SMALL AMOUNT OF SEROSANGUINEOUS "BOWEL SWEAT" IN POUCH, NO STOOL. SUPPLIES, PATTERN AND INSTRUCTIONS LEFT AT BEDSIDE. ARON Miranda'JUAN CARLOS WILL F/U NEXT WEEK.
--- NOTE | 2019-11-21 18:09 | NUR ---
CPAP TRIAL FOR 3 HRS, APPROPIATE ABG'S. BETTY RT ATTEMPTED SEVERAL TIMES, THEN FINALLY OBTAINED NIF -20. PT'S LACK OF COMPREHENSION AND THE LACK OF PHYSICAL MOBILITY OF HIS HEAD/NECK FOR COUGHING UP SECRETIONS, BOTH NEGATIVELY IMPACT POTENTIAL EXTUBATION. TITRATED DOWN LEVOPHED 4MCG/MIN KEEPING MAP>65. NG PATENT, REMAINS NPO. SLOWLY PROGESSING. DAUGHTER SASHA SWANSON INQUIRED REGARDING PT STATUS, UPDATED.
[2019-11-22] VITALS (12 sets, daily range): BP systolic 88–151; BP diastolic 42–62
--- NOTE | 2019-11-22 04:43 | NUR ---
PT IS AWAKE AND FOLLOWS COMMANDS COMPLAINS OF PAIN. MORPHINE GIVEN FOR PAIN SEE MAR FOR TIME OF ADMINISTRATION. COLOSTOMY BAG HAS SEROUS DRANINAGE TO PINK NOTED IN COLLECTION BACK. RED ROBING CATH IN CENTER. LUNGS CLEAR TO DIMINISHED. ABDOMEN IS BOWEL SOUNDS HYPOACTIVE AND ABDOMEN IS FIRM. DISTENDED UPON ASSESSMENT. RIGHT ARM IS IN IN RESTRAINTS TO NOT PULL AT LINES AND DEVICES. OTHER EXTREMITIES ARE CONTRACTED. REPOSITION AND TURN Q 2 HOURS. WILL CONTINUE TO ASSESS AND MONITOR PER NURSING
[2019-11-22 09:38] LABS: PCO2 37.8 mmHg (35.0-45.0); PO2 58.1 mmHg (80.0-100.0); pH 7.362 (7.360-7.450); sO2 89.4 % (92.0-98.0)
--- NOTE | 2019-11-22 09:49 | NUR ---
Nutrition: Pt npo x 5 days ICU. REC start standard TPN: 5% aa, 15% dextrose, 2.9% lipids to reach 80 mL/hr. If/when able to use enteral route, suggest Vital 1.2 formula start at 20 mL/hr.
--- NOTE | 2019-11-22 14:08 | PATH ---
[facility] [address] [place] [address] PATHOLOGY RPT PROCEDURE Name: JOHN SWANSON Andres Room #: 237-P ADM IN M.R.#: [id number] Admission: 11/17/19 Date of : 53 Discharge: Report #: [id number] Path Case #: [id number] [facility] Accession Number: [id number] . 01 Material submitted: . sigmoid colon - BX OF SIGMOID MASS . 02 Diagnosis: Large bowel "sigmoid mass", endoscopic biopsy: - INVASIVE ADENOCARCINOMA - Please see comment. . The results are discussed with Meghan, medical technologist blood bank to Dr. Todd Rodríguez, on at 12:45 on 11/22/2019. LBQ 11/22/2019 1306 Local . 02 Comment: The case is seen in co-review by Dr. Maisha Renee who concurs with the above diagnosis. (MLK/db; 11/21/2019) . 02 Electronically signed: . Dara Palomares MD, Pathologist NPI- [id number] . 01 Gross description: . The specimen is received in formalin, labeled "John Swanson, BX of sigmoid mass" and consists of multiple fragments of hedrick tissue measuring 1.8 x 0.6 x 0.3 cm in aggregate which are entirely submitted in A1. (SDY; 11/19/2019) SYU/SYU 11/19/2019 1333 Local . 02 Pathologist provided ICD-10: C18.7 . 02 CPT . [id number] Specimen Comment: A courtesy copy of this report has been sent to [phone] Specimen Comment: [phone] Specimen Comment: Report sent to / DR DORAN Performed at: 01 [place] [id number] [address] [id number] MD Keith Jimenez MD Phone: [phone] Performed at: 02 [facility] [address] [place] [address] PATHOLOGY RPT PROCEDURE Name: JOHN SWANSON Andres Room #: 237-P [facility] IN M.R.#: [id number] Admission: 11/17/19 Date of : 53 Discharge: Report #: [id number] Path Case #: [id number] [address] [place], [place] [id number] MD Griselda Pascual MD Phone: [phone]
--- NOTE | 2019-11-22 16:27 | NUR ---
SW reviewed chart and spoke with attending physician. Pt is s/p bowel resection. Pt has NG tube in place. Awaiting bx reports. Pt remains intubated and in ICU. CPAP trials continue. Pt to have right thoracentesis and blood transfusion today. SW provided update to [facility] post acute liaison. No weekend discharge planned. data processing systems project planner to fax clinical updates to [place] [facility] for review. NICK is following to assist as needed with discharge planning.
[2019-11-22 17:01] LABS: HEMATOCRIT 25.8 % (42.0-52.0); HEMOGLOBIN 8.7 gm/dL (14.0-18.0); MCH 28.5 pg (26.0-34.0); MCHC 33.6 g/dL (28.0-37.0); MCV 84.6 fL (80.0-100.0); RBC 3.05 mil/uL (4.50-6.00); WBC 15.3 thou/uL (4.0-11.0)
[2019-11-22 17:24] LABS: ALBUMIN 2.6 g/dL (3.4-5.0); CALCIUM 6.7 mg/dL (8.5-10.1); CREATININE 1.1 mg/dL (0.7-1.3); MAGNESIUM 1.8 mg/dL (1.8-2.4); PHOSPHORUS 1.1 mg/dL (2.5-4.9)
--- NOTE | 2019-11-22 20:10 | NUR ---
ASSUMED CARE AT 0700, VITAL SIGNS AND ASSESSMENT COMPLETED PER ICU PROTOCOL. DR. SINGH ROUNDED THIS AM. DR. DORAN ROUNDED THIS AM. DR. HARTLEY ROUNDED THIS AFTERNOON. SISTER OF PT, SASHA, CALLED AND PROVIDED UPDATE, SECURITY CODE PROVIDED. RN OBTAINED CONSENT FOR BLOOD TRANSFUSION AND THORACENTISIS. RN WILL CONTINUE TO MONITOR AND FOLLOW POC.
[2019-11-22 22:04] LABS: HEMOGLOBIN 8.8 gm/dL (14.0-18.0)
[2019-11-23] VITALS (13 sets, daily range): BP systolic 93–123; BP diastolic 51–68
--- NOTE | 2019-11-23 02:47 | NUR ---
PT POORLY RESTED OVERNIGHT HE WAS AWAKE FOR MOST OF THE NOC. PT INTUBATED BUT NOT SEDATED. DOESNT FOLLOW COMMANDS. TRIES TO MOUTH WORDS BUT RN UNABLE TO READ LIPS DUE TO ETT. PT ON AMIO GTT AT 0.5. BERT INTACT AND INPLACE. BATH AND DRESSING CHANGE TO ABD INCISION THIS SHIFT. PT IS STABLE. WILL CONTINUE TO CLOSELY MONITOR.
[2019-11-23 04:55] LABS: BE(vivo) -4.2 mmol/L (-2 to +3); HCO3 19.9 mmol/L (22.0-26.0); PCO2 32.3 mmHg (35.0-45.0); PO2 85.1 mmHg (80.0-100.0); pH 7.407 (7.360-7.450); sO2 96.6 % (92.0-98.0)
[2019-11-23 06:18] LABS: ABSOLUTE NEUTROPHILS 15.5 thou/uL (1.4-8.2); EOSINOPHILS 0.6 % (0.0-3.0); HEMATOCRIT 26.7 % (42.0-52.0); HEMOGLOBIN 8.8 gm/dL (14.0-18.0); LYMPHOCYTES 3.3 % (24.0-44.0); MCH 27.9 pg (26.0-34.0); MCHC 33.1 g/dL (28.0-37.0); MCV 84.4 fL (80.0-100.0); MONOCYTES 4.1 % (1.0-8.0); PLATELET COUNT 206 thou/uL (150-400); RBC 3.16 mil/uL (4.50-6.00); RDW 16.7 % (10.5-14.5); WBC 16.9 thou/uL (4.0-11.0)
[2019-11-23 06:42] LABS: ALBUMIN 2.3 g/dL (3.4-5.0); CALCIUM 6.4 mg/dL (8.5-10.1); CREATININE 1.2 mg/dL (0.7-1.3); MAGNESIUM 1.7 mg/dL (1.8-2.4); PHOSPHORUS 1.3 mg/dL (2.5-4.9); TOTAL BILIRUBIN 2.8 mg/dL (0.2-1.0); TOTAL PROTEIN 4.7 g/dL (6.4-8.2)
[2019-11-23 06:46] LABS: POTASSIUM 2.7 mmol/L (3.5-5.1)
[2019-11-23 12:59] LABS: BE(vivo) -4.6 mmol/L (-2 to +3); HCO3 19.3 mmol/L (22.0-26.0); PCO2 31.3 mmHg (35.0-45.0); PO2 90.7 mmHg (80.0-100.0); pH 7.408 (7.360-7.450); sO2 97.1 % (92.0-98.0)
[2019-11-23 14:52] LABS: MAGNESIUM 1.6 mg/dL (1.8-2.4)
--- NOTE | 2019-11-23 15:04 | NUR ---
ASSUMED CARE @ 0700 11/23/19, PT ASSESSMENTS AND VSS COMPLETE PER ICU PROTOCOL AND DOCUMENTED. DR SINGH HERE IN THE AM TO ROUND. PT PLACED ON CPAP 1130, PT TOLERATING WELL, ABG ACQUIRED SHORTLY AFTER, RESULTS CALLED TO DR SINGH. ORDERS PLACE TO EXTUBATE. PT EXTUBATED @ 1430, PT PLACED ON 50% FI02 FACE SHIELD. PT SATS 97-98, RR 17-19. WILL CONT TO MONITOR
[2019-11-23 23:18] LABS: MAGNESIUM 1.7 mg/dL (1.8-2.4); POTASSIUM 3.1 mmol/L (3.5-5.1)
[2019-11-24] VITALS (17 sets, daily range): BP systolic 75–132; BP diastolic 43–69
--- NOTE | 2019-11-24 03:48 | NUR ---
ASSUMED CARE OF PATIENT AT 1900. ON FACE SHIELD 50%. TOLERATING WELL UNTIL ABOUT 0200, DESAT, RT NOTIFIED. PLACED ON 100% NON-REBREATHER. SATS REMAIN AT ABOUT 91%. ENCOURAGED PATIENT TO COUGH, VERY LITTLE RESERVE, UNABLE TO COUGH. PATIENT EXTREMELY RESTLESS, ABLE TO PULL OUT NG TUBE. Naomi BEY NOTIFIED. ORDERS TO ASSESS STOMACH AND LEAVE NG OUT FOR NOW. RIGHT ARM PLACED BACK IN RESTRAINT DUE TO COMPROMISE MEDICAL TREATMENT. NOT PROGRESSING WELL TOWARDS POC GOALS.
[2019-11-24 06:27] LABS: MAGNESIUM 2.1 mg/dL (1.8-2.4); POTASSIUM 3.4 mmol/L (3.5-5.1)
[2019-11-24 10:13] LABS: HEMATOCRIT 31.7 % (42.0-52.0); HEMOGLOBIN 10.7 gm/dL (14.0-18.0); MCH 28.1 pg (26.0-34.0); MCHC 33.9 g/dL (28.0-37.0); RBC 3.82 mil/uL (4.50-6.00); RDW 16.5 % (10.5-14.5); WBC 20.2 thou/uL (4.0-11.0)
[2019-11-24 10:17] LABS: PLATELET COUNT 328 thou/uL (150-400)
[2019-11-24 10:26] LABS: ALBUMIN 2.2 g/dL (3.4-5.0); CALCIUM 6.7 mg/dL (8.5-10.1); CREATININE 1.2 mg/dL (0.7-1.3); TOTAL BILIRUBIN 4.6 mg/dL (0.2-1.0); TOTAL PROTEIN 5.4 g/dL (6.4-8.2)
[2019-11-24 10:36] LABS: ABSOLUTE NEUTROPHILS 17.2 thou/uL (1.4-8.2)
[2019-11-24 10:37] LABS: ANISOCYTOSIS 1+
[2019-11-24 16:21] LABS: MAGNESIUM 2.2 mg/dL (1.8-2.4); POTASSIUM 3.5 mmol/L (3.5-5.1)
--- NOTE | 2019-11-24 19:31 | NUR ---
100% NRB THIS MORNING, CHEST XRAY SHOWS RIGHT LUNG FERNANDO OUT. DR. SINGH HAD DISCUSSION WITH PATIENT ABOUT BRONCH TODAY. ABDOMEN DISTENDED. BRONC COMPLETED AND CT OF ABDOMEN AND PELVIS COMPLETED WITH CONTRAST. NO ILEUS NOTED BUT WILL NEED NGT FOR DECOMPRESSION. SR WITH NO ECTOPY. AFEBRILE.
--- NOTE | 2019-11-24 21:52 | NUR ---
SPOKE WITH DR. VORA AT THIS TIME. ORDER RECEIVED TO NOT REPLACE NG TUBE.
[2019-11-25] VITALS (24 sets, daily range): BP systolic 84–132; BP diastolic 42–68
[2019-11-25 05:12] LABS: BE(vivo) -1.2 mmol/L (-2 to +3); HCO3 21.9 mmol/L (22.0-26.0); PCO2 31.4 mmHg (35.0-45.0); PO2 168.5 mmHg (80.0-100.0); pH 7.462 (7.360-7.450); sO2 99.2 % (92.0-98.0)
[2019-11-25 05:20] LABS: HEMATOCRIT 30.3 % (42.0-52.0); HEMOGLOBIN 10.1 gm/dL (14.0-18.0); MCHC 33.3 g/dL (28.0-37.0); MCV 83.9 fL (80.0-100.0); PLATELET COUNT 379 thou/uL (150-400); RBC 3.61 mil/uL (4.50-6.00); RDW 16.8 % (10.5-14.5); WBC 17.2 thou/uL (4.0-11.0)
[2019-11-25 05:39] LABS: ALBUMIN 1.9 g/dL (3.4-5.0); CALCIUM 6.6 mg/dL (8.5-10.1); CREATININE 1.1 mg/dL (0.7-1.3); POTASSIUM 3.4 mmol/L (3.5-5.1)
[2019-11-25 08:57] LABS: ABSOLUTE NEUTROPHILS 14.6 thou/uL (1.4-8.2)
[2019-11-25 08:58] LABS: ANISOCYTOSIS 1+
--- NOTE | 2019-11-25 10:09 | NUR ---
Nutrition: Pt now without nutrition ~1 week. Nsg reports less abdominal distention and having output from ileostomy. If able rec start Vital 1.2 at 20 mL/hr via J tube and progress slowly to 70 mL/hr. ( pt at risk for refeeding syndrome ). If unable, start TPN standard, goal rate 80 mL/hr.
[2019-11-25 13:32] LABS: SOURCE CHEST; TOTAL VOLUME 38 mL
[2019-11-25 13:33] LABS: CLARITY HAZY; COLOR YELLOW
[2019-11-25 14:10] LABS: BF NUCLEATED CELLS 148 /mm3; BF RBC 4572 /mm3
[2019-11-25 14:14] LABS: BF MACROPHAGE 21 %; BF NEUTROPHILS 63 %
--- NOTE | 2019-11-25 16:30 | NUR ---
SW reviewed chart and spoke with attending physician. Pt is s/p bowel resection. Pt pulled out NG tube and is on bipap. Pt to have thoracentesis. Therapy evals ordered today. Updates to be sent to [facility] tomorrow. NICK is following to assist as needed with discharge planning.
--- NOTE | 2019-11-25 17:26 | NUR ---
FAXED CLINICAL UPDATE TO [facility] SPOKE WITH MARILYNN IN ADM SHE RECEIVED UPDATE. DP TO FOLLOW.
--- NOTE | 2019-11-25 18:03 | NUR ---
VAT CONSULTED TO TROUBLESHOOT MALFUNCTIONING RTIJ. LINE PULLED BACK TO FAR AND NEEDING TO BE REPLACED. DR RUTH AND DR BECK AWARE. OTW EXCHANGED LINE PER HOSPITAL P&P, 25CM IJ PLACED WITH 5CM EXTERNAL. CXR REVEALED TIP AT UPPER CAJ
--- NOTE | 2019-11-25 20:28 | NUR ---
CONTINUES ON BIPAP TODAY, FI02 WEANED DOWN TO 60%. THORACENTESIS COMPLETED AND 1 LITER REMOVED FROM R SIDE. TOLERATED WELL. BERT REMOVED AND PRESSURE HELD FOR 10 MINUTES. VITAL 1.2 STARTED AT 10CC/HR PER DR. VORA.
[2019-11-26] VITALS (23 sets, daily range): BP systolic 89–119; BP diastolic 44–62
[2019-11-26 05:12] LABS: CALCIUM 6.9 mg/dL (8.5-10.1); CREATININE 1.1 mg/dL (0.7-1.3); POTASSIUM 3.2 mmol/L (3.5-5.1)
[2019-11-26 08:53] LABS: SOURCE CHEST
[2019-11-26 08:54] LABS: SOURCE CHEST
[2019-11-26 08:54] LABS: SOURCE CHEST
--- NOTE | 2019-11-26 09:21 | NUR ---
ORDERS RECEIVED FOR PT EVAL AND TREAT. Pt FROM LTC AT [facility] WHERE HE HAS LIVED SINCE 2010. THIS NET SORTER CALLED TO SPEAK WITH STAFF MEMBER AT [facility] WHO CONFIRMED THAT Pt IS TOTAL CARE FOR ADLs AND REQUIRES JUDE LIFT TO TRANSFER IN/OUT OF BED TO A CHAIR. Pt IS FED BY STAFF. Pt SEEN BY THIS NET SORTER. Pt IS POOR HISTORIAN, STATING HE WALKS, LIVES WITH HIS MOTHER. Pt WITH SEVERE BILAT LE CONTRACTURES AND LYING IN SIDESWEPT POSITION WITH LEs TO THE RIGHT SIDE. L UE FLACCID WITH FINGER FLEXION CONTRACTURES. Pt RESISTING R UE ROM ASSESSMENT. Pt NOT APPROPRIATE FOR PT INTERVENTIONS AT THIS TIME. ANTICIPATE RETURN TO LTC FACILITY ONCE MEDICALLY CLEARED FOR D/C. ACUTE PT TO SIGN OFF.
--- NOTE | 2019-11-26 09:29 | NUR ---
OSTOMY CARE; pouch on 4 days, changed using marti 2 piece system cut to fit, adapt ring applied under wafer, peristomal skin intact, bilish liq stool noted, pt cooperative but due to debilitated state not teachable for ostomy care, info and supplies left at bs, will cont to follow recommendations; change pouch q3-4days and prn staff accountant informed
--- NOTE | 2019-11-26 11:15 | NUR ---
discussed during los, ready for dc tomorrow. rrbr updated yesterday.
--- NOTE | 2019-11-26 15:43 | NUR ---
NICK reviewed chart and spoke with nursing and attending physician. Pt remains in ICU and is progressing towards goals for discharge. Discharge back to [facility] is anticipated for tomorrow. NICK contacted [facility] acute liaison. They require a negative COVID-19 test within 72 hours of discharge. SW notified attending physician, who will order a COVID test today. NICK spoke with pt's sister, Hernán, via phone to provide update and notify of anticipated discharge. Pt's sister is agreeable with plan. Pt's sister wants to ensure that orders for O2 are on the d/c paperwork, as pt was not on O2 prior to admission. Pt is currently on 6L O2. Pt may transfer out of the ICU pending bed availability. NICK is following to assist as needed with discharge planning.
--- NOTE | 2019-11-26 17:07 | PATH ---
[facility] [address] [place] [address] PATHOLOGY RPT PROCEDURE Name: JOHN SWANSON Room #: 237-P ADM IN M.R.#: [id number] Admission: 11/17/19 Date of : 53 Discharge: Report #: [id number] Path Case #: [id number] Note [facility] Accession Number: [id number] TESTS RESULT FLAG UNITS REF RANGE LAB Clinician Provided Cytology Information No. of containers..01 Other (Miscellaneous) Source: 01 PLEURAL FLUID DIAGNOSIS: 02 PLEURAL FLUID NEGATIVE FOR MALIGNANT EPITHELIAL CELLS. REACTIVE MESOTHELIAL CELLS ARE PRESENT. CELLULAR DEGENERATION IS PRESENT. THIS INTERPRETATION INCLUDES EVALUATION OF A CELL BLOCK. Pathologist ICD10: 02 K56.609 Signed out by: 02 Griselda Pascual MD, Pathologist NPI- [id number] Performed by: 01 Nuria Schuster, Home Mortgage Disclosure Act Specialist ([facility]) Gross description: 01 10ML, CLOUDY YELLOW, 1 TP 1 CB /LCS 11/25/2019 1635 Local FLAG LEGEND: L-Low Normal,H-High Normal,LL-Alert Low,HH-Alert High <-Panic Low,>-Panic High,A-Abnormal,AA-Critical Abnormal Performed at: [address] [place] [address] Keith Jimenez MD, [address] [address] Griselda Pascual MD, Specimen Comment: A courtesy copy of this report has been sent to [phone] Specimen Comment: Report sent to Performed at: [address], [place], [place] [id number] MD Keith Jimenez MD Phone: [phone]
--- NOTE | 2019-11-26 19:07 | NUR ---
assumed care of pt at 0700, p is a GCS of 14, he has denied pain this shit. pt noted to resist cares most of the time. pt has been afibrile and vss. pt iliostomy working and pt put out liquid stool. family has called facility and they have been updated on patient condition.
[2019-11-27] VITALS (15 sets, daily range): BP systolic 99–131; BP diastolic 46–58
[2019-11-27 03:36] LABS: CALCIUM 6.9 mg/dL (8.5-10.1); POTASSIUM 3.6 mmol/L (3.5-5.1)
--- NOTE | 2019-11-27 09:11 | NUR ---
Recommend final TF goal of 70-75ml/hr. Start water flushes once D5 fluids are discontinued.
--- NOTE | 2019-11-27 13:29 | NUR ---
PT DISCHARGING BACK TO [facility] FAXED DC ORDERS/SUMMARY TO FACILITY SPOKE WITH MARILYNN IN ADM SHE RECEIVED ORDERS AND ARRANGED TRANSPORT BY [facility] FOR [phone] TODAY. LEFT VOICEMAIL WITH PT'S SISTER (CARMELLA) OF DC AND TIME OF TRANSPORT. NOTIFIED PT'S NURSE (CIRILO) OF TRANSPORT AND CHART COPY PER US. NURS TO CALL REPORT TO [phone].
--- NOTE | 2019-11-27 13:36 | NUR ---
PT AMIO GTT AND IVF DC'D THIS SHIFT. PT ON ROOM AIR THIS SHIFT, O2 SATS 93-95%. PATIENT HAS NOT BEEN PICKING AT DEVICES OR DRESSINGS, NO LONGER IN RESTRAINTS. FOLLOWING COMMANDS. J-TUBE PATENT, TF INFUSING AT 30ML/HR. H2O FLUSHES IMPLEMENTED THIS AFTERNOON AFTER IVF DC'D. MIDLINE INCISION SITE S/D/I, ORDERS FOR DISCHARGE INSTRUCTIONS FROM SURGEON IN DISCHARGE PACKET. ILEOSTOMY APPLIANCE PATENT, SECURED IN PLACE. DORSEY PATENT, PT TO DISCHARGE WITH DORSEY IN PLACE. PATIENT ON PUREED DIET THIS AFTERNOON, CONSUMED APPROX 3O% OF MEAL, ABLE TO STATE WHEN HE WAS FULL. FALL PRECAUTIONS IN PLACE. REPORT CALLED TO NOLVIA NOLEN AT [facility]. ATTEMPTED TO CALL FAMILY AT PHONE NUMBERS LISTED, NO ANSWER AND UNABLE TO LEAVE MESSAGE.
[2019-11-27] MEDS ORDERED: METRONIDAZOLE500 M4 PER TUBE (13:49)
[2019-11-27] MEDS ORDERED: CEFDINIR300 MG PER TUBE (13:49)
[2019-11-27 16:07] LABS: BODY FLUID LDH 162 IU/L (())
[2019-11-27 16:07] LABS: BODY FLUID ALBUMIN 1.5 g/dL (Not Estab.); BODY FLUID AMYLASE 62 U/L (()); BODY FLUID GLUCOSE 134 mg/dL (())
--- NOTE | 2019-11-27 16:15 | NUR ---
DISCHARGE NOTE: SW reviewed chart and spoke with nursing and attending physician. Pt is medically stable for discharge back to [facility] today. estate planner faxed COVID results and discharge orders/summary to [facility] for review. Stretcher van transportation scheduled for 1400 per facility's arrangements. estate planner notified pt's nurse and sister, Hernán. Chart copy completed. Nursing to call report. No additional SW needs identified at this time, but is available to assist should needs arise.
--- NOTE | 2019-11-29 13:15 | O ---
[facility] [place] [address] OPERATIVE REPORT Name: JOHN SWANSON Room #: 237-P [facility] IN M.R.#: [id number] Admission: 11/17/19 Attend Phys: Joel Murphy MD Discharge: 11/27/19 Date of : 53 Report #: [id number] THIS REPORT FOR: cc: ROSHAN - Family physician unknown ROSHAN - Family physician unknown Liu Nair MD ~ CC: ROSHAN unknown Liu Murphy DATE OF SERVICE: 11/19/2019 PREOPERATIVE DIAGNOSIS: Obstructing sigmoid mass. POSTOPERATIVE DIAGNOSIS: Obstructing sigmoid mass. OPERATIONS: 1. Subtotal colectomy with end ileostomy. 2. Jejunostomy. SURGEON: Liu Nair MD ANESTHESIA: General. ESTIMATED BLOOD LOSS: 150 mL. SPECIMEN: Subtotal colectomy. DRAINS: None. DESCRIPTION OF PROCEDURE: After informed consent was obtained, the patient was brought to the operating room and placed supine. SCDs were placed and working, preoperative antibiotics were administered, general anesthesia was induced. The abdomen was prepped and draped in the usual sterile fashion. A midline laparotomy incision was made approximately 3 cm above the umbilicus down to the pubis. Fascia was incised. A self-retaining retractor was placed. Upon entering the abdomen, there was significantly dilated right colon. This was grasped and I ran the colon distally. There was a hard mass in the sigmoid colon, consistent with the preoperative findings in the flexible sigmoidoscopy. The right colon was then retracted medially. The lateral attachments of the right colon were taken down with cautery. I then transected the ileum at approximately 10 cm from the cecum. The mesentery of the right colon was then ligated using the LigaSure device. Hepatic flexure was then taken down also with the LigaSure. There was good hemostasis. The greater omentum was incised. This allowed visualization of the lesser sac. [facility] [address] [place] [address] OPERATIVE REPORT Name: KIKI,JOHN P Room #: 237-P [facility] IN .R.#: [id number] Admission: 11/17/19 Attend Phys: Joel Murphy MD Discharge: 11/27/19 Date of : 53 Report #: [id number] The EnSeal was used to transect the mesentery distally across the transverse colon. There was good hemostasis. The splenic flexure was then taken down by incising the splenocolic ligament and the lateral attachments of the left colon using the EnSeal device. The lateral attachments of the descending colon were taken down as well as the sigmoid colon until I could feel the hard mass in the sigmoid colon. The colon was then transected distal to this, leaving a small stump of rectum and rectosigmoid. Again, the EnSeal was used to ligate the mesentery of the left colon and the sigmoid colon. Specimen was then removed. There was some contamination of stool from the right colon, this was all irrigated with normal saline. Ileum was then brought out through an incision in the left upper quadrant. I then placed a 14-Luxembourger red rubber catheter through the abdominal wall in the right upper quadrant. A jejunostomy was made. Catheter was placed through the jejunostomy. A Witzel tunnel was made using 3-0 silk suture. It was then tacked up to the abdominal wall. The fascia was then closed with a running #1 looped PDS suture. The skin was closed with jerome. The ileostomy was matured in Bebe ileostomy fashion. An ostomy appliance was placed. Sterile dressings were applied. COMPLICATIONS: None. DISPOSITION: The patient was taken to ICU in intubated condition. <ELECTRONICALLY SIGNED> By: Liu Nair MD 11/29/19 1315 1724 1739 Liu Nair MD /nt
--- NOTE | 2019-12-02 08:32 | HC ---
[facility] [place] [address] CONSULTATION Name: JOHN SWANSON Room #: 237-P [facility] IN Ricki.Caroline.#: [id number] Admission: 11/17/19 Attend Phys: Joel Murphy MD Discharge: 11/27/19 Date of : 53 Report #: [id number] THIS REPORT FOR: cc: FAM - Family physician unknown FAM - Family physician unknown Juan Jose Chamberlain MD ~ CC: ROSHAN unknown Liu Murphy DATE OF SERVICE: 11/17/2019 CONSULTATION: Infectious disease. HISTORY OF PRESENT ILLNESS: Mr. Swanson is a 64-year-old disabled gentleman who was transferred from his snf to [facility] on the day of consultation because of 2-3 days of increasing abdominal pain. The patient was noted to be extremely hypoxic and septic. Infectious Disease consultation was requested. The patient is generally quite debilitated with dementia and strokes. 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 In this setting, we do not have a lot of history. Apparently, he was ill for just a couple of days prior to transfer. PAST MEDICAL HISTORY: Includes duodenal ulcer, reflux, dysphagia, stroke, dementia, and anxiety. ALLERGIES: I have no history of allergies. SOCIAL HISTORY: I have no history of tobacco or alcohol use. I am not sure how long the patient has been so debilitated. REVIEW OF SYSTEMS: Unavailable because of the patient's diminished mental capacity. PHYSICAL EXAMINATION: GENERAL: The patient appears acutely and chronically ill, uncomfortable, but not in distress. VITAL SIGNS: Shows patient is afebrile. Blood pressure was as low as 87/57, but responded to fluids and pressors. SKIN: Somewhat sallow in color but without any rash, lesions, or exanthems. Did not see any significant wounds. ENT: Shows drooling from the mouth, but the patient's eyes are open and tracking. He would nod to questions intermittently and clearly was able to [facility] [address] [place] [address] CONSULTATION Name: JOHN SWANSON Andres [facility]: [facility] IN [facility].#: [id number] Admission: 11/17/19 Attend Phys: Joel Murphy MD Discharge: 11/27/19 Date of : 53 Report #: [id number] recognize aversive stimuli. The patient was generally contractured including stiffness in the neck, which I think is consistent with his general increased muscle tone. CHEST: Breath sounds were extremely rhonchorous. He was saturating satisfactorily with supplemental oxygen via nasal cannula. ABDOMEN: Clearly distended and stiff. It was moderately tender. I could not appreciate any rebound. Bowel sounds were absent. There was a scar from a previous gastrostomy tube, which was well healed. GENITOURINARY: Genitalia were grossly normal. Milner catheter was present, with a significant volume of clear yellow urine in the collection bag. EXTREMITIES: Showed contractures of both legs as well as his left arm. The pulses in the extremities were diminished. LABORATORY STUDIES: The initial blood gas on room air was pH 7.49, pCO2 of 32, pO2 of 44 on room air with 76% oxygen saturation. CBC showed white count of 20,900 with a shift to the left, demonstrated by 70% polys, 18% bands and Dohle bodies. Hemoglobin was 15.8 and down to 13.5 with 12 hours of hydration. Electrolytes showed sodium was 148, potassium has gone from 3.2-2.7 with hydration, chloride 103, bicarb is satisfactory at 27. BUN was 59; creatinine 2.9, down to 2.2. Lactate was normal at 1.3. Urinalysis showed greater than 25 white cells and showed bacteria on the dipstick. Radiology Department reports a right lower lobe infiltrate on the chest x-ray. CT of the abdomen shows what appears to be an obstruction with the transition zone at the junction of the descending colon and sigmoid colon. The rectum appeared to be impacted. There was incidental note of a left nonobstructing staghorn calculus in the kidney. ASSESSMENT AND PLAN: In summary, we have a debilitated gentleman who comes in with sepsis, demonstrating hypotension, tachycardia, leukocytosis and renal failure. He is significantly hypoxic as well. He appears to have obstruction of the colon, which could just be impaction, although there may be more malign process going on. He does have pyuria and does have an infiltrate on the chest x-ray as well. At this time, we will continue the patient on vancomycin and Zosyn, dosed for his kidney function. We need to follow his lactic acid. Would like to check a cortisol, TSH and get a CMP in the morning. Surgical input has been requested regarding the bowels. This will need to be investigated to make sure that the obstruction can be relieved before we develop ischemic changes in the gut. I do not know what the patient's baseline mental status is or any kind of limitations on therapy because of his chronic condition. For now, we will continue intensive antibiotic therapy and followup. COVID-19 testing is pending [address] [address] CONSULTATION Name: JOHN SWANSON Room #: 237-P DIS IN M.R.#: [id number] Admission: 11/17/19 Attend Phys: Joel Murphy MD Discharge: 11/27/19 Date of : 53 Report #: [id number] although this seems to be less likely as the cause for the patient's problems. Dr. Garcia will return on Monday morning for followup Infectious Disease care. <ELECTRONICALLY SIGNED> By: Juan Jose Chamberlain MD 12/02/19 0832 [id number] Juan Jose Chamberlain MD /nt
--- NOTE | 2019-12-02 10:07 | PATH ---
[facility] [place] [address] PATHOLOGY RPT PROCEDURE Name: JOHN SWANSON Andres Room #: 237-P DIS IN M.R.#: [id number] Admission: 11/17/19 Date of : 53 Discharge: 11/27/19 Report #: [id number] Path Case #: [id number] [facility] Accession Number: [id number] . 01 Material submitted: . colon - SUBTOTAL COLECTOMY . 01 Clinical history: . Sigmoid colon cancer . 02 Diagnosis: Terminal ileum and large bowel, subtotal colectomy: - MODERATELY DIFFERENTIATED ADENOCARCINOMA, forming a 4.5 x 2.5 cm nearly occlusive mass within the sigmoid colon (pT3). - Proximal resection margin negative. - Distal resection margin negative. - Serosal margin negative. - Please see cancer synoptic below. . - Dilatation of the cecum with an area of perforation and associated marked acute serositis. - Multiple tubular adenomas. - Diverticulosis. . Vermiform appendix, excision: - No significant pathologic alteration. . Lymph nodes, mesenteric (19), excision: - Reactive follicular lymphoid hyperplasia. - Negative for metastatic carcinoma (pN0) . CANCER SYNOPTIC OUTLINE: . Procedure - Subtotal colectomy . Tumor Site - Sigmoid colon . Tumor Location - Entirely above the anterior peritoneal reflection . Tumor Size - 4.5 x 2.5 cm . Macroscopic Tumor Perforation - Not identified . Histologic Type - Adenocarcinoma . Histologic Grade - G2; Moderately differentiated . Tumor Extension - Tumor invades through the muscularis propria into [facility] [address] [place] [address] PATHOLOGY RPT PROCEDURE Name: KIKIJOHN P Room #: 237-P [facility] IN [facility].#: [id number] Admission: 11/17/19 Date of : 53 Discharge: 11/27/19 Report #: [id number] Path Case #: [id number] pericolorectal tissue . Margins - All margins are uninvolved by invasive carcinoma, high grade dysplasia / intramucosal carcinoma, and low grade dysplasia . Distance of invasive carcinoma from closest margin: 2.5 cm (mesenteric) . Treatment Effect - No known presurgical therapy . Lymphovascular Invasion - Not identified . Perineural Invasion - Not identified . Tumor Budding - Not identified . Type of Polyp in Which Invasive Carcinoma Arose - Tubular adenoma . Tumor Deposits - Not identified . Regional Lymph Nodes - 19 lymph nodes identified - 0/19 involved . Primary Tumor - pT3 (Tumor invades through the muscularis propria into pericolorectal tissue) . Regional Lymph Nodes - pN0 (No regional lymph node metastasis) . Additional Pathologic Findings - Adenomas - Diverticulosis - Cecal perforation (not involved by neoplasm) (MLK/db; 11/28/2019) LBQ 12/02/2019 0938 Local . 02 Electronically signed: . Dara Palomares MD, Pathologist NPI- [id number] . 01 Gross description: . The specimen is received in a minimal amount of formalin, labeled "John Swanson, subtotal colectomy". Received is a sub-total colectomy specimen, in which the terminal ileum measures 3.2 cm in length and 2.4 cm in diameter and the cecum and colon mesure 93.2 cm in length. The serosal surface of the terminal ileum is pink hedrick and glistening. The wall of the cecum is thin, with a perforation identified, which measures 1.1 cm in diamter. The serosa surrounding the perforation is inked black. Omentum is adhesed to the mesenteric adipose tissue of the cecum and ascending colon. [address] [address] PATHOLOGY RPT PROCEDURE Name: JOHN SWANSON Room #: 237-P DIS IN M.R.#: [id number] Admission: 11/17/19 Date of : 53 Discharge: 11/27/19 Report #: [id number] Path Case #: [id number] The mesenteric adipose tissue measures 3.2 cm in thickness. The piece of omentum measures 34.9 x 15.5 x 3.2 cm. . . The specimen is opened along the anti-mesenteric border and fixed over night prior to sectioning. (CAA; 11/20/2019) . The mucosa of the terminal ileum is unremarkable. The ileocecal valve is slightly edematous and displays several ertythematous areas. The cecum is dilated, the mucosal folds attenuated, and the area surrounding the perforation erythematous. The mucosal folds of the ascending colon and transverse colon are more regular in appearance. Although the mucosal folds of the descending colon are attenuated and the this area is dilated, just proximal to a circumfirential ulcerated mass, which nearly completely occludes the lumen. Mucosal tatoo ink is noted just distal to the mass. The tumor measures 4.5 x 2.5 cm and invades the full thickness of the bowel wall out into the meseteric adipose tissue (approximately 2.5 cm from the margin) and into and closely approaching the inked (blue) serosal surface, to a maximal depth of 1.7 cm. The mass is located 82.5 cm from the proximal margin of resection and 8.2 cm from the distal margin of resection. . There are 3 additional polypoid lesions noted proximal to the occlusive mass, measuring 2.7 x 2.5 cm (mass #1- most proximal / 21.9 cm from the proximal surgical margin), 3.2 x 2.5 cm (mass #2 - middle), 3.5 x 2.6 cm (mass #3 - most distal). . . Mass #1 is pink-hedrick and polypoid in appearance. Sectioning reveals gross confinement to the mucosa with no extension through the muscularis propria into the underlying soft tissue. . Mass #2 is red-brown, polypoid in appearance. Sectioning reveals gross confinement to the mucosa with no extension through the muscularis propria into the underlying soft tissue. . Mass #3 is pink-hedrick to red-brown, friable and polypoid in appearance, and appears to be attached to the mucosa by a small stalk. Sectioning reveals gross confinement to the mucosa with no extension through the muscularis propria into the underlying soft tissue. Fragmentation has occurred upon sectioning. . . Also noted along the colonic mucosa are five pink-hedrick polyps ranging in size from 0.7 to 1.3 cm. There is also an erythematous to necrotic-area within the ascending colon, proximal to mass #1, measuring 3.1 x 1.8 cm. The appendix is present measuring 10.4 cm in length by 0.6 [facility] [address] [place] [address] PATHOLOGY RPT PROCEDURE Name: JOHN SWANSON Andres Room #: 237-P DIS IN M.R.#: [id number] Admission: 11/17/19 Date of : 53 Discharge: 11/27/19 Report #: [id number] Path Case #: [id number] cm in diameter and appears grossly unremarkable. . Sectioning through the omentum reveals yellow-hedrick cut surfaces with no grossly distinct nodules or lesions. . Extensive dissection and palpation of the attached mesenteric fat reveals several small lymph nodes ranging in size from 0.3 to 0.5 cm in maximum dimensions. The specimen is submitted representatively lesion followed: . A1 proximal margin, en face A2 distal margin, en face A3-A7 mass #1, entirely submitted A8-A12 mass #2, entirely submitted A13-A16 mass #3, entirely submitted A17 marketing representative section of mass #4 to show relationship with inked fatty surface A18 marketing representative section of mass #4 to show relationship with inked serosal surface A19-A22 additional marketing representative sections of mass #4 A23 polyp #1, bisected A24 polyp #2, bisected A25 polyp #3, bisected A26 polyp #4, intact A27 polyp #5, bisected A28 small bowel mucosa A29 ileocecal valve A30 colonic mucosa A31 area of perforation within cecum A32 marketing representative sections from ulcerated area in the ascending colon A33 sections of appendix, to include proximal margin and bisected tip A34 marketing representative sections of omentum A35-A36 intact lymph nodes A37 one bisected lymph node A38 two bisected lymph nodes A39-A42 lymphovascular bundles . Additional Sections Submitted after initial review: A43 additional section of tumor and serosal surface A44-45 possible lymph nodes . Gross photographs are taken. (CAA; 11/21/2019) QA/[facility] 12/02/2019 0936 Local . 02 Pathologist provided ICD-10: C18.7 . [address] [address] PATHOLOGY RPT PROCEDURE Name: JOHN SWANSON Room #: 237-P DIS IN M.R.#: [id number] Admission: 11/17/19 Date of : 53 Discharge: 11/27/19 Report #: [id number] Path Case #: [id number] [facility] . [id number] Specimen Comment: A courtesy copy of this report has been sent to [phone] Specimen Comment: [phone] Specimen Comment: Report sent to / DR AVILA Performed at: 01 [facility] [address] [id number] MD Keith Jimenez MD Phone: [phone] Performed at: 02 [facility] [address] [id number] MD Ady Tamez MD Phone: [phone]
--- NOTE | 2019-12-09 12:07 | PATH ---
[facility] [address] [place] [address] PATHOLOGY RPT PROCEDURE Name: JOHN SWANSON Room #: 237-P [facility] IN .R.#: [id number] Admission: 11/17/19 Date of : 53 Discharge: 11/27/19 Report #: [id number] Path Case #: [id number] Note [facility] Accession Number: [id number] TESTS RESULT FLAG UNITS REF RANGE LAB Clinician Provided Cytology Information No. of containers..01 Other (Miscellaneous) Source: BAL DIAGNOSIS: BAL NEGATIVE FOR MALIGNANT EPITHELIAL CELLS. SCANT CELLULARITY. SQUAMOUS CELL CONTAMINATION IS PRESENT. PULMONARY MACROPHAGES PRESENT, INDICATIVE OF LOWER RESPIRATORY TRACT SAMPLING. THIS INTERPRETATION INCLUDES EVALUATION OF A CELL BLOCK. RARE BRONCHIAL EPITHELIAL CELLS PRESENT. Pathologist ICD10: 02 K56.609 Signed out by: 02 Griselda Pascual MD, Pathologist NPI- [id number] Performed by: Radhika Lugo, Bread Wrapper ([facility]) Gross description: 01 20ML, CLOUDY WHITE, 1TP 1CB /LCS 11/26/2019 0601 Local FLAG LEGEND: L-Low Normal,H-High Normal,LL-Alert Low,HH-Alert High <-Panic Low,>-Panic High,A-Abnormal,AA-Critical Abnormal Performed at: 01 [facility] [address] [facility] [address] [place] [address] Keith Jimenez MD, [address] [address] Griselda Pascual MD, Specimen Comment: A courtesy copy of this report has been sent to [phone] Specimen Comment: [phone], Specimen Comment: Report sent to DR SINGH,DR DORAN / DR VORA Performed at: 01 [facility] [address] [place] [address] PATHOLOGY RPT PROCEDURE Name: KIKI,JOHN P Room #: 237-P DIS IN M.R.#: [id number] Admission: 11/17/19 Date of : 53 Discharge: 11/27/19 Report #: [id number] Path Case #: [id number] [address] [facility] [address], [place], [place] [id number] MD Keith Jimenez MD Phone: [phone]
== END 2019-11-27 14:54 | DRG 853 ==
LOC: ER 10:22 → EROBS 13:58 → ICU 13:58
PROVIDERS: Emergency Medicine; Hospitalist; Internal Medicine Pulmonary Disease; Pediatrics; Surgery; ADMIT Internal Medicine; ATTEND Internal Medicine
PROC: 0DH67UZ Insertion of Feeding Device into Stomach, Via Natural or Artificial Opening (ICD-10-PCS; principal; 2019-11-18)
PROC: 0DBN0ZZ Excision of Sigmoid Colon, Open Approach (ICD-10-PCS; 2019-11-19)
PROC: 0D1B0Z4 Bypass Ileum to Cutaneous, Open Approach (ICD-10-PCS; 2019-11-19)
PROC: 0DHA0UZ Insertion of Feeding Device into Jejunum, Open Approach (ICD-10-PCS; 2019-11-19)
PROC: 5A1945Z Respiratory Ventilation, 24-96 Consecutive Hours (ICD-10-PCS; 2019-11-19)
PROC: 0BH17EZ Insertion of Endotracheal Airway into Trachea, Via Natural or Artificial Opening (ICD-10-PCS; 2019-11-19)
PROC: 30233N1 Transfusion of Nonautologous Red Blood Cells into Peripheral Vein, Percutaneous Approach (ICD-10-PCS; 2019-11-22)
PROC: 5A09357 Assistance with Respiratory Ventilation, Less than 24 Consecutive Hours, Continuous Positive Airway Pressure (ICD-10-PCS; 2019-11-24)
PROC: 0BC48ZZ Extirpation of Matter from Right Upper Lobe Bronchus, Via Natural or Artificial Opening Endoscopic (ICD-10-PCS; 2019-11-24)
PROC: 0B9D8ZX Drainage of Right Middle Lung Lobe, Via Natural or Artificial Opening Endoscopic, Diagnostic (ICD-10-PCS; 2019-11-24)
PROC: 0W993ZZ Drainage of Right Pleural Cavity, Percutaneous Approach (ICD-10-PCS; 2019-11-25)
PROC: 5A09357 Assistance with Respiratory Ventilation, Less than 24 Consecutive Hours, Continuous Positive Airway Pressure (ICD-10-PCS; 2019-11-25)
DX: A41.9 Sepsis, unspecified organism (principal); J96.01 Acute respiratory failure with hypoxia; E43 Unspecified severe protein-calorie malnutrition; J18.9 Pneumonia, unspecified organism; R65.21 Severe sepsis with septic shock; K35.32 Acute appendicitis with perforation, localized peritonitis, and gangrene, without abscess; G92 Toxic encephalopathy; N17.9 Acute kidney failure, unspecified; N39.0 Urinary tract infection, site not specified; K56.609 Unspecified intestinal obstruction, unspecified as to partial versus complete obstruction; E87.0 Hyperosmolality and hypernatremia; K56.7 Ileus, unspecified; T17.590A Other foreign object in bronchus causing asphyxiation, initial encounter; C18.9 Malignant neoplasm of colon, unspecified; D62 Acute posthemorrhagic anemia; J91.8 Pleural effusion in other conditions classified elsewhere; K21.9 Gastro-esophageal reflux disease without esophagitis; G30.9 Alzheimer's disease, unspecified; F02.80 Dementia in other diseases classified elsewhere, unspecified severity, without behavioral disturbance, psychotic disturbance, mood disturbance, and anxiety; F41.9 Anxiety disorder, unspecified; K27.9 Peptic ulcer, site unspecified, unspecified as acute or chronic, without hemorrhage or perforation; Z86.73 Personal history of transient ischemic attack (TIA), and cerebral infarction without residual deficits; E87.8 Other disorders of electrolyte and fluid balance, not elsewhere classified; I48.91 Unspecified atrial fibrillation; E87.6 Hypokalemia; E11.9 Type 2 diabetes mellitus without complications; G40.409 Other generalized epilepsy and epileptic syndromes, not intractable, without status epilepticus; K56.41 Fecal impaction; I50.9 Heart failure, unspecified; Z20.828 Contact with and (suspected) exposure to other viral communicable diseases; E88.09 Other disorders of plasma-protein metabolism, not elsewhere classified; B96.4 Proteus (mirabilis) (morganii) as the cause of diseases classified elsewhere; I95.9 Hypotension, unspecified; X58.XXXA Exposure to other specified factors, initial encounter; Y93.89 Activity, other specified; Y99.8 Other external cause status; Y92.89 Other specified places as the place of occurrence of the external cause
CPT/HCPCS: 10078; 50093; 50101; 50290; 50386; 51412; 51708; 51712; 56526; 56527; 56528; 56530; 57092; 57103; 62110; 62900; 65020; 65040; 65131

== ENCOUNTER 2019-12-03 17:39 | Inpatient (IN) | payer OTHER ==
[~2019-12-03] VITALS: Ht 180.3 cm; Wt 68.3 kg
[~2019-12-03 17:39] MED LIST changes: +ALBUTEROL2.5 MG/0.1 INH; +CEFDINIR300 MG PER TUBE; +DEPAKOTE125 MG PO; +METRONIDAZOLE500 M4 PER TUBE; +TYLENOL325 MG PO; +VITAMIN D31250 MCG PO
[2019-12-03 17:46] VITALS: BP 112/71
[2019-12-03 19:25] LABS: BE(vivo) -6.7 mmol/L (-2 to +3); HCO3 17.3 mmol/L (22.0-26.0); HEMATOCRIT 33.9 % (42.0-52.0); HEMOGLOBIN 11.3 gm/dL (14.0-18.0); MCH 27.7 pg (26.0-34.0); MCHC 33.2 g/dL (28.0-37.0); MCV 83.4 fL (80.0-100.0); PCO2 VENOUS 30.3 mmHg (41.0-51.0); PLATELET COUNT 877 thou/uL (150-400); RBC 4.06 mil/uL (4.50-6.00); RDW 17.5 % (10.5-14.5); WBC 24.9 thou/uL (4.0-11.0)
[2019-12-03 19:30] LABS: CALCIUM 8.6 mg/dL (8.5-10.1); CREATININE 1.2 mg/dL (0.7-1.3); POTASSIUM 5.3 mmol/L (3.5-5.1)
[2019-12-03 19:36] LABS: ALBUMIN 2.6 g/dL (3.4-5.0); TOTAL BILIRUBIN 0.8 mg/dL (0.2-1.0); TOTAL PROTEIN 8.3 g/dL (6.4-8.2)
[2019-12-03 20:33] LABS: ABSOLUTE NEUTROPHILS 21.7 thou/uL (1.4-8.2)
[2019-12-03 20:34] LABS: ANISOCYTOSIS 1+; LARGE PLATELETS SEVERAL; PLATELET ESTIMATE MARKEDLY INCREASED; POIKILOCYTOSIS 1+; POLYCHROMASIA 1+
[2019-12-03 21:39] LABS: URINE BILIRUBIN NEGATIVE (Negative); URINE BLOOD 2+ (Negative); URINE CLARITY SL CLOUDY; URINE COLOR YELLOW; URINE GLUCOSE-RANDOM* NEGATIVE (Negative); URINE KETONES NEGATIVE (Negative); URINE NITRITE-REFLEX NEGATIVE (Negative); URINE PROTEIN (DIPSTICK) 1+ (Negative); URINE UROBILINOGEN 0.2 E.U./dl (0.2-1.0)
[2019-12-03 21:40] LABS: URINE LEUKOCYTES-REFLEX 1+ (Negative)
[2019-12-03 21:48] LABS: BACTERIA-REFLEX 1-9 Few /HPF (None Seen); CELLULAR CASTS 4-10 Moderate /LPF (None Seen); CRYSTALS None Seen /LPF (None Seen); HYALINE CASTS 0-3 Few /LPF (None Seen); MUCUS 4-6 Moderate strn/LPF (None Seen); SQUAMOUS 0-3 Few /LPF (0-3); URINE RBC 3-10 Few /HPF (0-2); URINE WBC-REFLEX 0-5 Rare /HPF (0-5)
[2019-12-04 00:12] VITALS: BP 116/58
[2019-12-04 00:26] VITALS: BP 113/85
[2019-12-04 00:50] VITALS: BP 104/61
--- NOTE | 2019-12-04 00:52 | NUR ---
UNABLE TO TAKE PATIENT TO FLOOR WHEN REPORT WAS GIVEN D/T EXPLODED COLOSTOMY BAG RESULTING IN PT NEEDING NEW COLOSTOMY BAG AND A BED BATH
[2019-12-04 05:40] LABS: HEMATOCRIT 33.1 % (42.0-52.0); HEMOGLOBIN 10.8 gm/dL (14.0-18.0); MCH 27.6 pg (26.0-34.0); MCHC 32.6 g/dL (28.0-37.0); MCV 84.5 fL (80.0-100.0); RBC 3.92 mil/uL (4.50-6.00); RDW 17.8 % (10.5-14.5); WBC 19.2 thou/uL (4.0-11.0)
[2019-12-04 05:57] LABS: CALCIUM 8.1 mg/dL (8.5-10.1); CREATININE 0.9 mg/dL (0.7-1.3); POTASSIUM 4.5 mmol/L (3.5-5.1)
--- NOTE | 2019-12-04 06:32 | NUR ---
PT AWAKE, ALERT TO SELF. PT NONVERBAL BASELINE, PT ABLE TO COMMUNICATE VIA NODDING AND MOUTHING SOME WORDS. PT NODS YES TO PAIN. PT NOTED TO HAVE INCREASED PAIN WITH REPOSITIONING. BUE AND BLE CONTRACTED. PT CONTINUES TO REST IN BED THROUGHOUT SHIFT, FREQUENT REPOSITIONING ENCOURAGED. PT REFUSING SOME TURNS DUE TO REPORTS OF COMFORT. PT REMAINS NPO. PT INCONTINENT OF BLADDER, COLOSTOMY BAG INTACT AND FUNCTIONING PROPERLY. PT ENCOURAGED TO NOTIFY STAFF FOR ALL NEEDS. CALL LIGHT WITHIN REACH, BED ALARM ON, BED IN LOWEST POSITION, WILL CONTINUE TO MONITOR.
[2019-12-04 08:12] VITALS: BP 103/62
--- NOTE | 2019-12-04 08:46 | NUR ---
OSTOMY CARE; pouch intact, no leakage, changed in ER this am, stoma pink viable budded, liq bilish effluent noted, abd incision intact, well approximated w/ jerome, healing, supplies at bs, will follow prn recommendations; changed pouch marti cut to fit 2 piece system q 3-5 days and prn staff physician aware
--- NOTE | 2019-12-04 08:48 | NUR ---
WOUND CONSULT; ASSESSED PT W/ RUG WASHER YOAN, NO SKIN BREAKDOWN NOTED, ABD SURGICAL WOUND HEALING, SKYLER STILL INTACT, WELL APPROXIMATED, DR HARTLEY CONSULTED REGARDING STAPLE REMOVAL. DUE TO DEBILITY STATE AND CONTRACTURES ORDERED LOW AIR LOSS PUMP TO BED, WILL SIGN OFF RUG WASHER AWARE
[2019-12-04 09:46] LABS: INR 1.1
--- NOTE | 2019-12-04 13:21 | NUR ---
ASSESSMENT: CM REVIEWED CHART AND SPOKE WITH ATTENDING. PT IS FROM [facility] AND HAS HX OF PEG TUBE. PT WAS ADMITTED ABNORMAL BICARB. PT HAS BEEN SEEN BY SURGERY AND HAS LARGE FLUID COLLECTION THAT WILL BE ASPIRATED BY IR AND HE WILL HAVE A DRAIN PLACED. PT CAN RESUME TUBE FEEDS. PT IS FROM FACILITY AND NORMALLY USES A WHEELCHAIR. CM SPOKE WITH PATIENTS SISTER TO UPDATE HER. CM SPOKE WITH MARILYNN AT [facility] TO UPDATE AND ALSO FAXED CLINICAL TO HER. CM WILL CONTINUE TO FOLLOW TO ASSIST NEEDED. PLAN IS FOR PATIENT TO RETURN TO [place] ONCE MEDICALLY STABLE TO DO SO. CM WILL CONTINUE TO FOLLOW TO ASSIST NEEDED.
--- NOTE | 2019-12-04 14:58 | NUR ---
Assumed care of pt at 0700. Pt c/o bilateral lower extremity pain. Prn pain meds administered. Covid test sent to lab per order. Provider ordered abd jerome to come out. Able to pull 2 jerome out and pt becomes agitated and impulsive. IR procedure scheduled for tomorrow 12/04 for drainage of fluid in abd. Talked to pt's sister over the phone and updated on situation. Called facility where pt resides and asked about pt's tube feeding order. Fall precautions in place. Will continue to monitor.
[2019-12-04 16:05] VITALS: BP 127/61
[2019-12-04 19:17] VITALS: BP 120/63
[2019-12-05 05:30] LABS: HEMATOCRIT 33.1 % (42.0-52.0); HEMOGLOBIN 10.5 gm/dL (14.0-18.0); MCHC 31.6 g/dL (28.0-37.0); MCV 85.7 fL (80.0-100.0); RBC 3.87 mil/uL (4.50-6.00); RDW 17.7 % (10.5-14.5); WBC 20.2 thou/uL (4.0-11.0)
[2019-12-05 05:59] LABS: CALCIUM 8.2 mg/dL (8.5-10.1); POTASSIUM 4.5 mmol/L (3.5-5.1)
[2019-12-05 08:22] VITALS: BP 126/62
[2019-12-05 08:50] VITALS: BP 126/62
--- NOTE | 2019-12-05 08:51 | NUR ---
PT CARE ASSUMED AT 0700. A&Ox3 PERSON, PLACE, SITUATION. Q6 BLOOD SUGARS WITH SLIDING SCALE. NPO SINCE MIDNIGHT. 14 SKYLER REMOVED FROM ABDOMEN. DRAINIG AND REDNESS ON TH ELOWER TWO STAPLE SITES. CONTRACTED ON THE ENTIRE LEFT SIDE AND R. LOWER EXTREMITY. Q2 TURNS. SCD PUMP. LOW AIRLOSS PUMP. PEG TUBE IN PLACE CLAMPED DUE TO NPO STATUS. COLOSTOMY BAG IN PLACE. PT IS HAVING A ABCESS DRAINED FROM THE PELVIS TODAY. TUBE FEEDINGS ARE TO BE STARTED AGAIN AFTER PROCEDURE. JEVITY 1.5 AT 45ML/HR CONTINUES WITH 300ML WATER FLUSHES Q6. PT IS ON SEIZURE PRECAUTIONS. IV IS PATENT WITH NO REDNESS OR EDEMA, FLUIDS INFUSING. COVID NEG. VITALS STABLE. PT ON BEDREST. FALL PROTOCOL IN PLACE. WILL CONTINUE TO MONITOR.
--- NOTE | 2019-12-05 12:06 | NUR ---
ON-GOING ASSESSMENT: CM REVIEWED CHART. PT IS TO HAVE SEROMA DRAINED TODAY AND POSSIBLE DISCHARGE BACK TO FACILITY SOON. CM NOTIFIED LIASON AT [facility] AND ALSO FAXED CLINICAL UPDATES. CM LEFT FOR PATIENTS SISTER SASHA TO UPDATE HER.
[2019-12-05 14:15] VITALS: BP 107/57
--- NOTE | 2019-12-05 14:37 | NUR ---
PT BROUGHT TO CT FOR ABD DRAIN PLACEMENT. TIME OUT TAKEN PRIOR TO PROCEDURE. DR. LANCE PLACE DRAIN TO LT SIDE ABD, ATTACHED TO DRAINAGE BAG. PT TOLERATED PROCEDURE WELL. RETURNED TO ROOM.
[2019-12-05 18:38] VITALS: BP 112/60
[2019-12-05 20:20] VITALS: BP 113/55
--- NOTE | 2019-12-06 01:27 | NUR ---
PT ASSESSED AT START OF SHIFT A&O TO PERSON REORIENTED TO PLACE, TIME AND SITUATION FORGETFULL. COLOSTOMY BAG LEAKING LIGHT BROWN DRAINAGE. NEW BAG PLACED AND INTACT. PT INCONTINENT LIGHT YELLOW URINE NOTED. Q2 TURNS DONE, SCD'S IN PLACE, SEIZURE PREC AND ON A LOW AIR LOSS PUMP. IV INTACT AND FLUIDS INFUISING. PEG TUBE IN PLACE AND GLUCERNA 1.2 GOING AT 45ML/HR. Q6 BLOOD SUGAR CHECKED. CONTRCATURES IN BLE AND LUE NOTED. FALL PREC IN PLACE, FREQ ROUNDING DONE WILL CONT TO MONITOR TILL EOS.
[2019-12-06 05:50] VITALS: BP 116/57
[2019-12-06 05:56] LABS: ABSOLUTE NEUTROPHILS 12.6 thou/uL (1.4-8.2); BASOPHILS 0.7 % (0.0-2.0); EOSINOPHILS 0.7 % (0.0-3.0); HEMATOCRIT 28.1 % (42.0-52.0); HEMOGLOBIN 9.1 gm/dL (14.0-18.0); LYMPHOCYTES 7.6 % (24.0-44.0); MCH 27.4 pg (26.0-34.0); MCHC 32.3 g/dL (28.0-37.0); MCV 84.8 fL (80.0-100.0); MONOCYTES 6.5 % (1.0-8.0); POLYS 84.5 % (36.0-66.0); RBC 3.32 mil/uL (4.50-6.00); RDW 17.7 % (10.5-14.5)
[2019-12-06 05:57] LABS: PLATELET COUNT 795 thou/uL (150-400)
--- NOTE | 2019-12-06 07:34 | NUR ---
RD TUBE FEEDING RECS: If po diet unsafe/not medically indicated to resume, REC increasing Goal Rate of Glucerna 1.2 TF to 70 ml/hr to fully meet nutrition needs. Current rate of 45 ml/hr only meets 62% energy needs, 79% protein needs without any additional nutrition coming from oral intake d/t NPO status.
--- NOTE | 2019-12-06 07:45 | NUR ---
ORDERS RECEIVED FOR EVAL AND TREAT. FROM PREVIOUS STAYS IT WAS NOTED THAT Pt IS DEPENDENT WITH CARE AND JUDE LIFT FOR TRANSFERS. Pt HAS SEVERE CONTRACTURES AND IS NOT APPROPRIATE FOR THERAPY IN THE ACUTE SETTING.
[2019-12-06 07:59] VITALS: BP 100/53
--- NOTE | 2019-12-06 13:00 | NUR ---
ON-GOING ASSESSMENT: CM REVIEWED CHART AND SPOKE WITH ATTENDING. PT HAS ORDERS TO DISCHARGE TODAY BACK TO [facility]. DARON NOTIFIED LIACONRADO SUBRAMANIAN AT [facility] WHO STATES THEY CAN ACCEPT PT BACK TODAY. SHE HAS ARRANGED FOR TRANSPORTATION TO COME AT 6PM. CM NOTIFIED BEDSIDE RN WELL PATIENTS SISTER WHO REQUESTED THE DISCHARGE TIME. CHART COPY WAS ORDERED AND APPRAISAL TECHNICIAN AWARE. CM PROVIDED BEDSIDE RN WITH THE NUMBER FOR REPORT. CM FAXED D/C ORDERS TO FACILITY ALONG WITH NEGATIVE COVID TEST AND SCREENING FORM. DARON ALSO NOTIFIED LIASON PT WOULD BE COMING WITH PERC DRAIN. CASE CLOSED. MARILYNN AT [facility]:[phone]
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
[2019-12-06 16:40] VITALS: BP 117/54
--- NOTE | 2019-12-06 20:14 | NUR ---
ASSUMED CARE @1900 PER REPORT PT TO D/C @ [address] [facility]. DAY NURSE STATED CALLED [facility] TO GIVE REPORT NO ANSWER. THIS NURSE CALLED [facility] NO RESPONSE. AWAITING TRANSPORTATION VIA BED WAS TOLD TRANSPORTER ARRIVED @1800 WITH A W/C WILLBE BACK TO NICKEL OPERATOR PT. WILL CONT TO MONITOR TO D/C.
== END 2019-12-06 21:02 | DRG 871 ==
LOC: ER 17:39 → 4S 23:47 → EROBS 23:47 → 4S 12-04 00:30
PROVIDERS: Emergency Medicine; Internal Medicine Infectious Disease; Nurse Practitioner Family; ADMIT Hospitalist; ATTEND Hospitalist
PROC: 0J9830Z Drainage of Abdomen Subcutaneous Tissue and Fascia with Drainage Device, Percutaneous Approach (ICD-10-PCS; principal; 2019-12-05)
DX: A41.9 Sepsis, unspecified organism (principal); J18.9 Pneumonia, unspecified organism; E43 Unspecified severe protein-calorie malnutrition; L02.91 Cutaneous abscess, unspecified; N17.9 Acute kidney failure, unspecified; C18.9 Malignant neoplasm of colon, unspecified; E11.9 Type 2 diabetes mellitus without complications; G30.9 Alzheimer's disease, unspecified; F02.80 Dementia in other diseases classified elsewhere, unspecified severity, without behavioral disturbance, psychotic disturbance, mood disturbance, and anxiety; F41.9 Anxiety disorder, unspecified; K21.9 Gastro-esophageal reflux disease without esophagitis; R13.10 Dysphagia, unspecified; D64.9 Anemia, unspecified; M24.575 Contracture, left foot; M24.542 Contracture, left hand; G47.00 Insomnia, unspecified; S30.1XXA Contusion of abdominal wall, initial encounter; Z20.828 Contact with and (suspected) exposure to other viral communicable diseases; Z90.49 Acquired absence of other specified parts of digestive tract; Z93.3 Colostomy status; M24.541 Contracture, right hand; X58.XXXA Exposure to other specified factors, initial encounter; Y93.89 Activity, other specified; Y92.89 Other specified places as the place of occurrence of the external cause; Y99.8 Other external cause status; Z68.21 Body mass index [BMI] 21.0-21.9, adult
CPT/HCPCS: 10195

== ENCOUNTER 2019-12-14 01:19 | Inpatient (IN) | payer OTHER ==
[~2019-12-14] VITALS: Ht 182.9 cm; Wt 85.5 kg
--- NOTE | ~2019-12-14 | EMS ---
[address] [address] EMS Patient Care Report Name: JOHN SWANSON Room #: REG [facility] Pal#: [id number] Admission: 12/14/19 Attend Phys: Discharge: Date of : 53 Report #: [id number] THIS REPORT FOR: //name// Report Transmitted: 12/14/2019 01:19 EMS Care Summary [place], [place] Incident [id number] @ 12/14/2019 00:52 Incident Location [address] [place] [address] Patient JOHN YAO Male, 64 Years 1955 Patient Address [address] [place], [place] [id number] Patient History Behavioral/Psychiatric Disorder,Congestive Heart Failure (CHF),Diabetes,Kidney/Renal Failure,Alzheimer's,Gastro-Esophageal Reflux Disease (GERD),Colon Cancer,Urinary Tract Infection (UTI),Pneumonia,Anxiety,Anemia,Sepsis,Dysphagia,Chronic Kidney Disease,Chronic Respiratory Failure,Respiratory Failure, Patient Allergies No known allergies, Patient Medications Metronidazole, Acetaminophen, Ferrous Sulfate, Depakote, Tramadol, Albuterol, Cholecalciferol, Chief Complaint FEVER/LOW O2 SAT Disposition Transported No Lights/[place] Dispatch Reason Breathing Problem Transported To [address] [address] EMS Patient Care Report Name: JOHN SWANSON Room #: REG [facility]ENCE Pal#: [id number] Admission: 12/14/19 Attend Phys: Discharge: Date of : 53 Report #: [id number] Narrative SCENE: ON ARRIVAL PT FOUND IN BED AT FRONT DOOR OF ADDRESS PROVIDED. STAFF ON SCENE REPORTS PT HAD LOW OXYGEN SATURATION AND A FEVER OF 101.1. STAFF REPORTS PT WAS GIVEN 650MG TYLENOL AT APPROXIMATELY 0100. STAFF REPORTS PT PLACED ON NC AT 4LPM WITH IMPROVED SATS. PT MOVED TO EMS STRETCHER. AMBULANCE: PT IS ALERT TO SELF ONLY, WHICH IS NORMAL PER FACILITY STAFF. VITALS MONITORED THROUGHOUT TRASPORT. NO CHANGES IN PT STATUS EN ROUTE. Initial Vitals @01:05P: 113,R: 20,BP: 113/68,Pain: 0/10,GCS: 14,SpO2: 95,Revised Trauma: 12, Assessments @01:01MENTAL:Confused,Person Oriented,Place Oriented,SKIN:Diaphoresis,Hot,HEENT:Head/Face: No Abnormalities,Neck/Airway: No Abnormalities,LUNG SOUNDS:General: No Abnormalities,ABDOMEN:General: No Abnormalities,PELVIS//GI:No Abnormalities,EXTREMITIES:Left Arm: Other,Right Arm: Other,Left Leg: Other,Right Leg: Other,PULSE:NEURO:No Abnormalities,@01:12MENTAL:Person Oriented,Place Oriented,Confused,SKIN:Diaphoresis,HEENT:Head/Face: No Abnormalities,LUNG SOUNDS:General: No Abnormalities,ABDOMEN:General: No Abnormalities,PELVIS//GI:No Abnormalities,EXTREMITIES:Left Arm: Other,Right Leg: Other,Right Arm: Other,Left Leg: Other,PULSE:NEURO:No Abnormalities, Impression Fever Procedures @01:00ALS AssessmentResponse: UnchangedSucceeded@PTAOxygen FlowRate: 4 Device: Nasal Cannula (NC) Response: UnchangedSucceeded@01:03StretcherResponse: Unchanged Timeline CLASSIFICATION COUNSELOR,Oxygen FlowRate: 4 Device: Nasal Cannula (NC) Response: UnchangedSucceeded, 00:50,Call Received 00:50,Dispatch Notified 00:52,Dispatched 00:53,En Route 00:59,On Scene 01:00,At Patient 01:00,ALS Assessment,Response: UnchangedSucceeded, 01:03,Stretcher,Response: Unchanged 01:05,BP: 113/68 M,PULSE: 113,RR: 20 R,SPO2: 95 Ox,ETCO2: ,BG: ,PAIN: 0,GCS: 14, 01:05,Depart Scene [address] [address] EMS Patient Care Report Name: JOHN SWANSON Andres [facility] [id number] Admission: 12/14/19 Attend Phys: Discharge: Date of : 53 Report #: [id number] 01:15,At Destination 01:34,Call Closed Disclaimer v1.1 Copyright 2020 [employer] This EMS Care Summary contains data elements from the applicable legal record (which may be displayed differently). It is designed to provide pertinent information for the following purposes: continuity of care, clinical quality, and state data reporting. The complete legal record is available to ED staff and administrators of the receiving hospital in [facility]'s Patient Tracker. All data is provided "as is."
--- NOTE | ~2019-12-14 | EMS ---
[address] [address] EMS Patient Care Report Name: JOHN SWANSON Room #: 350-P ADM IN .R.#: [id number] Admission: 12/14/19 Attend Phys: Mart Araya MD Discharge: Date of : 53 Report #: [id number] THIS REPORT FOR: //name// Report Transmitted: 12/17/2019 18:31 EMS Care Summary [place], [place]/[facility] Incident [id number] @ 12/14/2019 00:52 Incident Location [address] [place] [address] Patient JOHN YAO Male, 64 Years 1955 Patient Address [address] [place], [place] [id number] Patient History Behavioral/Psychiatric Disorder,Congestive Heart Failure (CHF),Diabetes,Kidney/Renal Failure,Alzheimer's,Gastro-Esophageal Reflux Disease (GERD),Colon Cancer,Urinary Tract Infection (UTI),Pneumonia,Anxiety,Anemia,Sepsis,Dysphagia,Chronic Kidney Disease,Chronic Respiratory Failure,Respiratory Failure, Patient Allergies No known allergies, Patient Medications Metronidazole, Acetaminophen, Ferrous Sulfate, Depakote, Tramadol, Albuterol, Cholecalciferol, Chief Complaint FEVER/LOW O2 SAT Disposition Transported No Lights/[place] Dispatch Reason Breathing Problem Transported To [address] [address] EMS Patient Care Report Name: JOHN SWANSON Room #: 350-P [facility] IN [facility]#: [id number] Admission: 12/14/19 Attend Phys: Mart Araya MD Discharge: Date of : 53 Report #: [id number] Narrative SCENE: ON ARRIVAL PT FOUND IN BED AT FRONT DOOR OF ADDRESS PROVIDED. STAFF ON SCENE REPORTS PT HAD LOW OXYGEN SATURATION AND A FEVER OF 101.1. STAFF REPORTS PT WAS GIVEN 650MG TYLENOL AT APPROXIMATELY 0100. STAFF REPORTS PT PLACED ON NC AT 4LPM WITH IMPROVED SATS. PT MOVED TO EMS STRETCHER. AMBULANCE: PT IS ALERT TO SELF ONLY, WHICH IS NORMAL PER FACILITY STAFF. VITALS MONITORED THROUGHOUT TRASPORT. NO CHANGES IN PT STATUS EN ROUTE. Initial Vitals @01:05P: 113,R: 20,BP: 113/68,Pain: 0/10,GCS: 14,SpO2: 95,Revised Trauma: 12, Assessments @01:01MENTAL:Confused,Person Oriented,Place Oriented,SKIN:Diaphoresis,Hot,HEENT:Head/Face: No Abnormalities,Neck/Airway: No Abnormalities,LUNG SOUNDS:General: No Abnormalities,ABDOMEN:General: No Abnormalities,PELVIS//GI:No Abnormalities,EXTREMITIES:Left Arm: Other,Right Arm: Other,Left Leg: Other,Right Leg: Other,PULSE:NEURO:No Abnormalities,@01:12MENTAL:Person Oriented,Place Oriented,Confused,SKIN:Diaphoresis,HEENT:Head/Face: No Abnormalities,LUNG SOUNDS:General: No Abnormalities,ABDOMEN:General: No Abnormalities,PELVIS//GI:No Abnormalities,EXTREMITIES:Left Arm: Other,Right Leg: Other,Right Arm: Other,Left Leg: Other,PULSE:NEURO:No Abnormalities, Impression Fever Procedures @01:00ALS AssessmentResponse: UnchangedSucceeded@PTAOxygen FlowRate: 4 Device: Nasal Cannula (NC) Response: UnchangedSucceeded@01:03StretcherResponse: Unchanged Timeline GIS PROGRAMMER,Oxygen FlowRate: 4 Device: Nasal Cannula (NC) Response: UnchangedSucceeded, 00:50,Call Received 00:50,Dispatch Notified 00:52,Dispatched 00:53,En Route 00:59,On Scene 01:00,At Patient 01:00,ALS Assessment,Response: UnchangedSucceeded, 01:03,Stretcher,Response: Unchanged 01:05,BP: 113/68 M,PULSE: 113,RR: 20 R,SPO2: 95 Ox,ETCO2: ,BG: ,PAIN: 0,GCS: 14, 01:05,[place] [address] EMS Patient Care Report Name: JOHN SWANSON Andres Room #: 350-P ADM IN M.R.#: [id number] Admission: 12/14/19 Attend Phys: Mart Araya MD Discharge: Date of : 53 Report #: [id number] 01:15,At Destination 01:34,Call Closed Disclaimer v1.1 Copyright 2020 [employer] This EMS Care Summary contains data elements from the applicable legal record (which may be displayed differently). It is designed to provide pertinent information for the following purposes: continuity of care, clinical quality, and state data reporting. The complete legal record is available to ED staff and administrators of the receiving hospital in [employer] Patient Tracker. All data is provided "as is."
[2019-12-14 01:26] VITALS: BP 124/69
[2019-12-14] MEDS ORDERED: MUPIROCIN15 GM TOP (01:43)
[2019-12-14] MEDS ORDERED: ONE-DAILY MULT1 EAC1 PO (01:45)
[2019-12-14] MEDS ORDERED: DIGESTIVE PROB250 MG PER TUBE (01:45)
[2019-12-14 02:14] LABS: ABSOLUTE NEUTROPHILS 12.7 thou/uL (1.4-8.2); BASOPHILS 0.5 % (0.0-2.0); EOSINOPHILS 0.7 % (0.0-3.0); HEMATOCRIT 34.4 % (42.0-52.0); HEMOGLOBIN 11.2 gm/dL (14.0-18.0); MCH 27.3 pg (26.0-34.0); MCHC 32.6 g/dL (28.0-37.0); MCV 83.7 fL (80.0-100.0); MONOCYTES 8.3 % (1.0-8.0); PLATELET COUNT 628 thou/uL (150-400); POLYS 85.5 % (36.0-66.0); RBC 4.11 mil/uL (4.50-6.00); RDW 17.3 % (10.5-14.5); WBC 14.8 thou/uL (4.0-11.0)
[2019-12-14 02:24] LABS: BE(vivo) -2.7 mmol/L (-2 to +3); HCO3 21.6 mmol/L (22.0-26.0); PCO2 35.7 mmHg (35.0-45.0); PO2 73.1 mmHg (80.0-100.0); sO2 94.8 % (92.0-98.0)
[2019-12-14 02:48] LABS: CALCIUM 8.5 mg/dL (8.5-10.1); CREATININE 1.1 mg/dL (0.7-1.3); POTASSIUM 4.7 mmol/L (3.5-5.1)
--- NOTE | 2019-12-14 03:47 | NUR ---
CALLED CT SCAN AND SPOKE WITH WAYNE PENA TO REMOVING PATIENT'S OXYGEN. WAYNE STATES THAT PATIENT REMOVED OXYGEN AND THREW THE TUBING AT HER WHILE IN CT SCAN. SHE STATES SHE ATTEMPTED TO REPLACE OXYGEN, BUT PATIENT WAS NOT AGREEABLE. SO, TUBING DISCONNECTED AND PLACED ON BACK OF BED. UPON RETURN TO ROOM, WAYNE STATES THAT SHE TOLD LARRY OPERATOR THAT THE OXYGEN WAS DISCONNECTED. THIS DIGITAL DESIGN ENGINEER NOTED PATIENT O2 SAT 80% WITH PERFECT PLETH. ENTERED ROOM TO FIND NO OXYGEN ON AND TUBING UNDER HEAD OF STRETCHER. PLACED OXYGEN ON PATIENT WITHOUT DIFFICULTY. O2 SAT INCREASED TO 93% ON 4L BY NC. PHYSICIAN NOTIFIED
[2019-12-14 06:29] VITALS: BP 125/62
--- NOTE | 2019-12-14 06:45 | NUR ---
REPORT GIVEN TO INPATIENT NURSE AT THIS TIME. AWAITING TRANSPORT TO THE FLOOR
[2019-12-14 07:21] VITALS: BP 123/69
[2019-12-14] MEDS ORDERED: GLUCERNA 1.2 C237 ML PER TUBE (08:43)
[2019-12-14] MEDS ORDERED: TRAMADOL 50 MG50 MG PO (08:48)
--- NOTE | 2019-12-14 14:59 | NUR ---
PT COVID TEST WAS REPORTED POSITIVE...DR MARIA DEL ROSARIO RUTH STATED TO CONTINUE ENHANCED PRECAUTIONS AT THIS TIME...DR HOLLINS AND OPTOELECTRONICS ENGINEER NOTIFED. ALSO NOTIFIED PATIENTS LOUISE BAEZ...
--- NOTE | 2019-12-14 18:00 | NUR ---
PT WAS SHORT OF AIR AT [facility] AND [facility]...ADMITTED FROM ED...COVID POSITIVE...SATS 99% 4L...
[2019-12-14 19:38] VITALS: BP 95/59
[2019-12-15 03:58] VITALS: BP 92/50
--- NOTE | 2019-12-15 05:19 | NUR ---
PATIENT IS ALERT TO SELF. Q2 TURN, INCONTIENT. PATIENT HAS A FEVER BUT IT HAS COME DOWN OVER NIGHT WITH INTERVENTION. PATIENT IS RESTING COMFORTABLY IN BED. NO COMPLANTS OVER NIGHT. WCM.
[2019-12-15 06:11] LABS: ABSOLUTE NEUTROPHILS 11.6 thou/uL (1.4-8.2); BASOPHILS 0.8 % (0.0-2.0); HEMATOCRIT 30.2 % (42.0-52.0); HEMOGLOBIN 9.8 gm/dL (14.0-18.0); LYMPHOCYTES 8.9 % (24.0-44.0); MCH 27.6 pg (26.0-34.0); MCHC 32.6 g/dL (28.0-37.0); MCV 84.6 fL (80.0-100.0); MONOCYTES 8.1 % (1.0-8.0); POLYS 82.2 % (36.0-66.0); RBC 3.57 mil/uL (4.50-6.00); RDW 17.5 % (10.5-14.5); WBC 14.2 thou/uL (4.0-11.0)
[2019-12-15 06:15] LABS: PLATELET COUNT 464 thou/uL (150-400)
[2019-12-15 08:08] VITALS: BP 103/83
[2019-12-15 15:20] VITALS: BP 96/59
--- NOTE | 2019-12-15 19:31 | NUR ---
MONITOR FEVER..T MAX 100.3...TYLENOL GIVEN...
[2019-12-15 19:32] VITALS: BP 102/60
[2019-12-16 03:06] VITALS: BP 98/70
--- NOTE | 2019-12-16 04:20 | NUR ---
Patient making slow progress towards outcome goals. Oxygenation optimal at 2L/NC but patient has been found multiple times without cannula on. Uses fowl language and swings at staff when during cares. Ileostomy leaked x 2 replaced and connected to dependent drain. No drainage obtained from abdominal drains. BP stable, febrile 99-100 orally. IVfluids infusing. Incontinent of bladder. High fall risks, fall precautions in place. Patient contracted and bedbound. Turned to sides. Buttocks intact, skin fragile. Protective cream applied. Complete chlorhexedine bed bath done.
[2019-12-16 07:51] VITALS: BP 123/56
[2019-12-16 09:33] LABS: HEMATOCRIT 33.3 % (42.0-52.0); HEMOGLOBIN 10.6 gm/dL (14.0-18.0); MCH 27.1 pg (26.0-34.0); MCHC 31.9 g/dL (28.0-37.0); MCV 85.1 fL (80.0-100.0); RBC 3.91 mil/uL (4.50-6.00); RDW 18.1 % (10.5-14.5); WBC 13.1 thou/uL (4.0-11.0)
[2019-12-16 09:47] LABS: ALBUMIN 2.6 g/dL (3.4-5.0); CALCIUM 8.4 mg/dL (8.5-10.1); PHOSPHORUS 2.7 mg/dL (2.5-4.9); POTASSIUM 3.5 mmol/L (3.5-5.1)
--- NOTE | 2019-12-16 10:40 | NUR ---
OSTOMY CONSULT DUE TO COVID, ASSESSMENT LIMITED, DISCUSSED OSTOMY ISSUES W/ HOT SAW HELPER KANDI, PT KNOWN TO THIS [facility] NURSE FROM PREVIOUS ADMISSIONS, PER STAFF LIQ STOOL, SUGGEST CHANO CUT TO FIT HIGH OUTPUT POUCH, CONNECT TO DEP DRAINAGE SYSTEM, USE ADAPT RING CHANO #[id number] UNDER WAFER FOR POUCH TO ADHERE BETTER, CHANGE Q 3-4 DAYS AND PRN, SUPPLIES LEFT IN NURSE CERTIFIED APPLIANCE SERVICE TECHNICIAN HOT SAW HELPER AWARE
[2019-12-16 15:05] VITALS: BP 106/63
--- NOTE | 2019-12-16 15:09 | NUR ---
INITIAL ASSESSMENT: Received consult. NICK reviewed chart and spoke with nursing and attending physician. Pt was admitted from [facility] due to fevers. Pt is in Enhanced Isolation. Pt had positive COVID-19 test. Pt with hx of CVA/Alzheimer's/DM. Surgery consulted for abscess drainage. Pt was recently at [facility] and discharged back to [facility] on 12/05. NICK spoke with [place] post-acute liaison, Alvina. Update provided. Per Alvina, pt will need to have one negative COVID-19 test prior to returning to the facility. NICK notified attending physician. NICK spoke with pt's sister, Hernán, via phone. Introduced role of NICK. Pt lives in the intermediate project manager care unit at [facility] since 2010. Pt is total care at the facility. Pt's sister states she is aware of pt testing positive for COVID-19. NICK faxed clinical info and COVID test results to the facility for review. Plan is for pt to return to [facility]. NICK is following to assist as needed with discharge planning.
--- NOTE | 2019-12-16 15:56 | NUR ---
ASSUMED PATIENT CARE AT APPROXIMATELY 7AM. PATIENT IN ENHANCED PRECAUTIONS. PATIENT REMAINED AWAKE AND ALERT THIS SHIFT. ASSESSMENT AND MEDS CHARTED. PATIENT WAS ABLE TO BE WEANED OFF O2 THIS SHIFT. O2 SAT GREATER THAN 92% ON ROOM AIR. PATIENT NPO THIS SHIFT FOR POSSIBLE PERCUTANEOUS DRAIN PLACEMENT WITH IR. ILEOSTOMY LEAKING THIS SHIFT AND CHANGED. STOMA APPEARS TO BE PINK, MOIST, SKIN INTACT SURROUNDING STOMA. DRAINING GREEN LIQUID OUTPUT. PATIENT HEELS OFFLOADED. KEPT IN CONTACT WITH PATIENTS SISTER VIA TELEPHONE TO UPDATE ON PLAN OF CARE
[2019-12-16 19:58] VITALS: BP 129/51
[2019-12-17] VITALS (7 sets, daily range): BP systolic 90–128; BP diastolic 31–66
--- NOTE | 2019-12-17 07:00 | NUR ---
Patient progress towards outcpme goals is slow. Oxygenation optimal on room air. Low grade temp 99-100. Cough loose non productive. Incontinent of urine. Ileostomy with large output greenish brown liquid. Abdominal drains intact, no measurable drainage.
[2019-12-17 09:12] LABS: APTT 31.7 Seconds (24.5-32.8); INR 1.1; PROTIME 11.4 Seconds (9.3-11.4)
--- NOTE | 2019-12-17 09:46 | NUR ---
If able to restart jtube feeds in next 48 hr, recommend glucerna 1.2 at 65ml/hr continueous and advance diet as tolerated back to puree/nectar liquids. If remains npo, consider tpn
--- NOTE | 2019-12-17 15:19 | NUR ---
NICK reviewed chart and spoke with nursing and attending physician. Pt remains in Enhanced Isolation due to COVID-19. Pt went to IR today for procedure. Pt will need negative COVID test prior to returning to [facility]. NICK discussed possibility of LTAC for pt due to complex medical needs, IV abx and [facility] to [facility] COVID positive pts. NICK spoke with pt's sister, Hernán, via phone. Discussed level of care in LTAC v. SNF/LTC. Pt's sister is agreeable with referral to LTAC. Options discussed. Pt's sister is agreeable with referrals to all three LTACs. SW faxed referral (with COVID test results and Rev Codes) to [facility]. Notified liaisons. Awaiting to hear back if [facility] is accepting COVID positive pts. If so, will fax referral. NICK is following to assist as needed with discharge planning.
--- NOTE | 2019-12-17 18:14 | NUR ---
ASSUMED PATIENT CARE AT 0700. ALERT X2. STARTED TF AT 65ML/HR. TOLERATED WELL. FEBRILE, BP LOW. PHSICIAN NOTIFIED. 1000ML FLUID GIVEN. BLOOD CULTRUE DONE. Q2H TURN. NOT TOWARDS POC GOALS.
--- NOTE | 2019-12-17 20:59 | NUR ---
WENT IN THE PATIENT ROOM WITH AM RN TO ROUND PRIOR TO SHIFT START. IT WAS REPORTED THAT THE PT WAS IN PAIN, BUT PT COULD NOT VOICE, SO JOSÉ UGALDE FACES SCALE IS BEING UTILIZED FOR PAIN MANAGEMENT. SINCE THEN PT HAS BEEN TURNED, TYLENOL WAS GIVEN, MEDICATIONS WERE PROVIDED, PT WAS REARRANGED IN BED. ILEOSTOMY TUBING WAS FLUSHED, ALL LINES ARE FLOWING WELL, J TUBE TF HAD 5ML RESIDUAL. PT ALSO WAS SHAKING MINIMALLY AND STATED 'PAIN' SO MORPHINE WILL BE GIVEN WHENEVER POSSIBLE. WILL CONTINUE TO PROVIDE CARE
[2019-12-18 04:39] VITALS: BP 124/78
[2019-12-18 07:26] LABS: HEMATOCRIT 27.3 % (42.0-52.0); HEMOGLOBIN 8.9 gm/dL (14.0-18.0); MCH 28.3 pg (26.0-34.0); MCHC 32.8 g/dL (28.0-37.0); MCV 86.1 fL (80.0-100.0); RBC 3.16 mil/uL (4.50-6.00); RDW 18.1 % (10.5-14.5); WBC 6.9 thou/uL (4.0-11.0)
[2019-12-18 07:52] VITALS: BP 102/43
[2019-12-18] MEDS ORDERED: ZOSYN 3.3753.375 GM IV (11:27)
--- NOTE | 2019-12-18 15:13 | NUR ---
[facility] accepted the pt and had a bed for him today;however pt is febrile and ID is changing his medications. [facility] liason to call pt's sister to see what questions she might have. The attending indicates that he has spoken with her and she is agreeable to ltac transfer when medically stable. [facility] is not accepting covid + patients. DC planner internship has faxed clinical updates to [facility]. Will f/u tomorrow in anticipation that the pt may be dc ready in 1-2 days. Kasandra poon [place] billy updated as well.
--- NOTE | 2019-12-18 16:19 | NUR ---
FAXED CLINICAL UPDATE TO [facility] SPOKE WITH DEIRDRE IN ADM HE RECEIVED UPDATE. DP TO FOLLOW.
[2019-12-18 17:42] VITALS: BP 143/41
--- NOTE | 2019-12-18 18:06 | NUR ---
ASSUMED CARE APPROX 0700. PT ALERT AND ORIENTED TO SELF. ASSESSMENT CHARTED. PT HAS BEEN FEBRILE THIS SHIFT. WAS DUE TO DISCHARGE TODAY, BUT PER DR. RUTH STILL FEBRILE. DR. HOLLINS NOTIFIED AND WILL SPEAK TO DR. RUTH REGARDING PLAN OF CARE. CALL PLACED X2 TO DR. HOLLINS TO GET ORDER FOR DORSEY, PT'S FEVER, AND ORDER FOR ABCESS CULTURE. STILL AWAITING CALL BACK. PT'S OSTOMY DRAINING W/O COMPLICATION.
[2019-12-18 19:21] VITALS: BP 119/42
[2019-12-18 20:16] LABS: URINE BILIRUBIN NEGATIVE (Negative); URINE BLOOD 3+ (Negative); URINE CLARITY CLOUDY; URINE COLOR YELLOW; URINE GLUCOSE-RANDOM* NEGATIVE (Negative); URINE KETONES TRACE (Negative); URINE LEUKOCYTES-REFLEX TRACE (Negative); URINE NITRITE-REFLEX NEGATIVE (Negative); URINE PROTEIN (DIPSTICK) 2+ (Negative); URINE SPECIFIC GRAVITY 1.025 (1.005-1.035); URINE UROBILINOGEN 0.2 E.U./dl (0.2-1.0)
[2019-12-18 20:24] LABS: BACTERIA-REFLEX 1-9 Few /HPF (None Seen); CASTS None Seen /LPF (None Seen); CRYSTALS None Seen /LPF (None Seen); MUCUS 4-6 Moderate strn/LPF (None Seen); SQUAMOUS 0-3 Few /LPF (0-3); URINE RBC >20 Many /HPF (0-2); URINE WBC-REFLEX 0-5 Rare /HPF (0-5)
--- NOTE | 2019-12-18 22:25 | NUR ---
ASSUMED PT CARE AT AROUND 1900, PT IS AWAKE, ALERT, ORIENTED TO SELF, ASSESSMENTS CHARTED, PT REPOSITIONED, MEDICATIONS GIVEN ORDERED, PT APPEARS TO BE IN NO DISTRESS, WILL CONTINUE TO MONITOR
[2019-12-19] VITALS (9 sets, daily range): BP systolic 74–141; BP diastolic 39–79
[2019-12-19 05:02] LABS: TROPONIN-I 0.22 ng/mL (<0.06)
[2019-12-19 05:18] LABS: CALCIUM 7.5 mg/dL (8.5-10.1); PHOSPHORUS 2.4 mg/dL (2.5-4.9); POTASSIUM 4.8 mmol/L (3.5-5.1); TOTAL BILIRUBIN 0.3 mg/dL (0.2-1.0); TOTAL PROTEIN 6.5 g/dL (6.4-8.2)
--- NOTE | 2019-12-19 08:04 | NUR ---
PT STARTED BEING TACHYCARDIC UPTO 170, SAUSAGE CUTTER NOTIFIED, MEDICATIONS ORDERED AND GIVEN CHARTED WITH NO IMPROVEMENT, EKG OBTAINED, CARDIOLOGY NOTIFIED, PT WAS PUT ON CARDIZEM DRIP, PT REMAINED ASYMPTOMATIC, STABLE AT THIS TIME HR AT 115, REPORT GIVEN TO DAY NURSE
[2019-12-19 08:11] LABS: MAGNESIUM 1.6 mg/dL (1.8-2.4)
--- NOTE | 2019-12-19 08:55 | NUR ---
ASSUMED PATIENT CARE AT 0700. ALERT.PATIENT ON CARDIZEM GTT AT 20ML/HR. 02 SAT 84 ON 8L. INCREASED 02 TO 10L. TITRATED CARDIZEM TO 5ML/HR NOW THEN STOPED DUE TO BP 84/40. PATIENT AFIB ON MONITOR WITH HR 132 AT [address]. U[address] TO [address] JOHNSON HE IS GOING TO TRANSFER TO ICU. CALLED DPOA MASSAGE LEFT. WILL KEEP MONITOR.
--- NOTE | 2019-12-19 09:07 | EKG ---
[facility] [place] [address] ELECTROCARDIOGRAM REPORT Name: JOHN SWANSON Andres Room #: 350-P ADM IN M.R.#: [id number] Admission: 12/14/19 Attend Phys: Mart Araya MD Discharge: Date of : 53 Report #: [id number] THIS REPORT FOR: cc: Jose Eduardo Maria James D. DO Lundgren, Craig H. MD [facility] THIS REPORT FOR: //name// [facility] Test Date: 2019-12-19 Test Time: 04:03:36 Pat Name: JOHN SWANSON Department: Room: 350 P Gender: M Leather Cleaner: MARCELLUS : 1955 Requested By: Magdalene Sidhu Order Number: [id number] MD: Stefan Sandoval Measurements Intervals [place] Rate: 170 P: 0 AR: 39 QRS: -89 QRSD: 120 T: -43 QT: 275 QTc: 463 Interpretive Statements Atrial flutter RBBB and LAFB Baseline wander in lead(s) V1 Compared to ECG 11/21/2019 02:23:11 No significant change was found Electronically Signed On 12-19-2019 9:06:57 CDT by Stefan Sandoval [email or web address] <ELECTRONICALLY SIGNED> By: Stefan Sandoval MD, [facility] 12/19/1906 2 2 Stefan Sandoval MD, [facility] /EPI
--- NOTE | 2019-12-19 10:11 | NUR ---
cm provided update to nerieda fernandes. report from bedside nurse, pt needs for o2 increased 4-10L. cont to have elevated temps. will cont following as needed for dc needs.
--- NOTE | 2019-12-20 05:56 | NUR ---
ASSESSMENT: PT REMAIN ALERT AND ORIENT TIMES ONE AND SOMETIMES TWO. DOES SEEM TO ANSWER Y/N APPROPRIATELY AT TIMES. TURNED Q 2 HOUR. DORSEY WITH LOW OUT PUT. MORPHINE GIVEN ONCE FOR PAIN. AMIODARONE INFUSING WITH HR 68-98. JEVITY INFUSING VIA RIGHT JT. OSTOMY BAG WITH THICK BROWNISH OUT PUT. PT HAS ORDERS TO TRANSFER TO ICU. DNR STATUS. POSITIVE FOR COVID. WILL CONTINUE TO MONITOR. SR-SA PER MONITOR.
[2019-12-20 06:35] VITALS: BP 74/46
[2019-12-20 07:55] VITALS: BP 80/42
--- NOTE | 2019-12-20 08:58 | NUR ---
OSTOMY CARE NOTE; PT REMAINS IN ENHANCED ISOLATION DUE TO COVID 19, THEREFORE LIMITED ASSESSMENT, ACCORDING TO NATIONAL DEDICATED TRUCK DRIVER TEDDY POUCH INTACT, USING CHANO HIGH OUTPUT APPLIANCES, SUPPLIES LEFT AT BS, WILL CONT TO FOLLOW PRN RECOMMENDATIONS; CHANO HIGH OUTPUT, ADAPT RING UNDER WAFER, SUPPLIES AT BS NATIONAL DEDICATED TRUCK DRIVER AWARE
--- NOTE | 2019-12-20 09:00 | NUR ---
WOUND CARE CONSULT; PT REMAINS IN ENHANCED ISOLATION TO DUE COVID 19, THEREFORE LIMITED ASSESSMENT, VIEWED PHOTO, NEW SKIN BREAKDOWN L BUTTOCK, DISCUSSED WOUND STATUS W/ MAIL SERVICE COORDINATOR TEDDY, WILL CONSULT WOUND DR, SUGGESTED FOAM DRSG AND PROTECTIVE CREAM UNTIL SEEN BY DR, LOW AIR LOSS PUMP REMAINS ON BED RECOMMENDATIONS CONSULT WOUND DR, TURN Q2 HOURS, OFF LOADING, CONT LOW AIR LOSS PUMP TO BED BORDER FOAM DRSG W/ PROTECTIVE CREAM TILL SEEN BY WOUND DR MAIL SERVICE COORDINATOR AWARE
[2019-12-20 10:41] VITALS: BP 81/47
[2019-12-20 11:32] LABS: CALCIUM 7.6 mg/dL (8.5-10.1); POTASSIUM 4.8 mmol/L (3.5-5.1)
[2019-12-20 11:34] LABS: CREATININE 4.3 mg/dL (0.7-1.3)
--- NOTE | 2019-12-20 13:33 | NUR ---
COMPLETE CARES. MULTIPLE LINES. MEDICATED ORDERED. UNABLE TO MAKE HIS NEEDS KNOWN. REFUSED HIS LUNCHTIME BG. CR 4.[address]CAUTIONS IN PL[address] AT LEAST HOURLY CHECKS. SR W/BBB PER TELE. WILL CONTINUE TO FOLLOW CLOSELY.
[2019-12-20 15:19] VITALS: BP 78/47
[2019-12-20 19:20] VITALS: BP 72/44
[2019-12-20 20:00] VITALS: BP 114/42
[2019-12-21] VITALS (7 sets, daily range): BP systolic 83–124; BP diastolic 41–51
[2019-12-21 06:36] LABS: HEMATOCRIT 23.1 % (42.0-52.0); HEMOGLOBIN 7.3 gm/dL (14.0-18.0); MCH 27.3 pg (26.0-34.0); MCHC 31.7 g/dL (28.0-37.0); MCV 86.2 fL (80.0-100.0); RBC 2.68 mil/uL (4.50-6.00); RDW 19.6 % (10.5-14.5); WBC 13.7 thou/uL (4.0-11.0)
[2019-12-21 06:48] LABS: ALBUMIN 1.5 g/dL (3.4-5.0); CALCIUM 7.1 mg/dL (8.5-10.1); CREATININE 4.8 mg/dL (0.7-1.3); PHOSPHORUS 1.5 mg/dL (2.5-4.9)
--- NOTE | 2019-12-21 12:40 | HC ---
[facility] [place] [address] CONSULTATION Name: JOHN SWANSON Room #: 350-P ADM IN M.R.#: [id number] Admission: 12/14/19 Attend Phys: Mart Araya MD Discharge: Date of : 53 Report #: [id number] THIS REPORT FOR: cc: Jose Eduardo Maria,Candido Bhakta MD ~ CC: Mart Maria DATE OF SERVICE: 12/20/2019 REASON FOR CONSULTATION: Sacral pressure sore in a patient with intra-abdominal abscess, status post colon cancer resection with severe protein-calorie malnutrition, COVID PCR positive and sacral pressure sore. HISTORY OF PRESENT ILLNESS: The patient is a 64-year-old gentleman who had undergone subtotal colectomy for colon cancer 12/19/2019. He developed an intra-abdominal abscess, has a drain in the left lower quadrant. The patient has had severe protein-calorie malnutrition. He has a feeding jejunostomy tube on the right side. He also has a colostomy. The patient was noted to have a sacral pressure sore. Wound Care is consulted. The patient has dementia and is quite immobile. PAST MEDICAL HISTORY: 1. Diabetes mellitus type 2. 2. Colon cancer, status post subtotal colectomy with intra-abdominal abscess, creation of ileostomy and feeding jejunostomy. 3. Postoperative respiratory failure. 4. Severe protein-calorie malnutrition. 5. Dementia. 6. Immobility. PHYSICAL EXAMINATION: GENERAL: Shows a chronically ill-appearing gentleman with dementia who is noncommunicative. HEENT: Mucous membranes are moist. The patient has some contractures, is immobile. LUNGS: Respirations are unlabored. ABDOMEN: Shows a healed midline abdominal incision. In the right abdomen, there is a red rubber feeding jejunostomy tube and the patient is receiving enteral feeding through the jejunostomy tube. On the left side, he has a well-functioning colostomy. BACK: Examination of the patient's back shows a 2 cm x 1 cm superficial stage 3 sacral pressure sore. IMPRESSION: [facility] [address] [place] [address] CONSULTATION Name: JOHN SWANSON Room #: 350-P [facility] IN ..#: [id number] Admission: 12/14/19 Attend Phys: Mart Araya MD Discharge: Date of : 53 Report #: [id number] 1. Immobility. 2. Severe protein-calorie malnutrition, receiving jejunostomy tube feedings. 3. History of postoperative respiratory failure. 4. History of COVID positive PCR. 5. History of colon cancer, status post subtotal colectomy complicated by intra-abdominal abscess, now with a colostomy and intra-abdominal drain in the left lower quadrant. 6. Dementia. 7. Severe protein-calorie malnutrition. 8. Sacral stage 3 pressure sore. PLAN: Reposition as possible. Mepilex over the sacral pressure sore or barrier cream. Maximize nutrition through tube feedings. Wound care team will follow. <ELECTRONICALLY SIGNED> By: Candido Lay MD 12/21/19 1240 [id number] [id number] Candido Lay MD /nt
--- NOTE | 2019-12-21 15:59 | NUR ---
ASSUMED CARE OF PT AT 0700. PT NON VERBAL, FUSSY, RESISTANT TO CARE. REFUSING TURNS. TURNED ABLE. TOLERATING TUBE FEED. HYPOTENSIVE BUT STABLE. AMIO GTT OFF - INITIATED PO AMIO. SUGARS STABLE. SINUS ON TELEMETRY. ENHANCED PRECAUTIONS IN PLACE. WCM.
[2019-12-22 04:40] VITALS: BP 108/47
--- NOTE | 2019-12-22 07:49 | NUR ---
PT MAKING SLOW PROGRESS TOWARDS GOALS. O2 SAT ON ROOM AIR 92-95% OVERNIGHT. REFUSES TO WEAR OXYGEN CANNULA. CONGESTED COUGH BUT REFUSES ANY ORAL CARE OR ORAL SUCTION. WILL EVEN GO SO FAR TO REFUSE ORAL THERMOMETER. AFEBRILE OVERNIGHT.
[2019-12-22 08:03] LABS: HEMATOCRIT 21.9 % (42.0-52.0); MCHC 32.1 g/dL (28.0-37.0); MCV 84.1 fL (80.0-100.0); RBC 2.6 mil/uL (4.50-6.00); RDW 19.3 % (10.5-14.5); WBC 15.3 thou/uL (4.0-11.0)
[2019-12-22 08:23] LABS: ALBUMIN 1.6 g/dL (3.4-5.0); CALCIUM 7.1 mg/dL (8.5-10.1); CREATININE 5.5 mg/dL (0.7-1.3); PHOSPHORUS 1.6 mg/dL (2.5-4.9); POTASSIUM 5.6 mmol/L (3.5-5.1)
[2019-12-22 11:03] VITALS: BP 133/55
[2019-12-22 13:18] LABS: URINE BILIRUBIN NEGATIVE (Negative); URINE BLOOD 3+ (Negative); URINE CLARITY CLEAR; URINE COLOR YELLOW; URINE GLUCOSE-RANDOM* NEGATIVE (Negative); URINE KETONES NEGATIVE (Negative); URINE LEUKOCYTES 1+ (Negative); URINE NITRITE NEGATIVE (Negative); URINE PROTEIN (DIPSTICK) 2+ (Negative); URINE SPECIFIC GRAVITY 1.015 (1.005-1.035); URINE UROBILINOGEN 0.2 E.U./dl (0.2-1.0)
[2019-12-22 13:20] LABS: URINE POTASSIUM-RANDOM* 18.6 mmol/L
[2019-12-22 13:34] LABS: BACTERIA 1-9 Few /HPF (None Seen); CASTS None Seen /LPF (None Seen); CRYSTALS None Seen /LPF (None Seen); SQUAMOUS None Seen /LPF (0-3); URINE RBC 0-2 Rare /HPF (0-2); URINE WBC None Seen /HPF (0-5)
[2019-12-22 13:41] LABS: URINE CREATININE-RANDOM* <13 mg/dL
[2019-12-22 13:43] LABS: URINE PROTEIN-RANDOM* 117.8 mg/dL (<11.9)
--- NOTE | 2019-12-22 20:01 | NUR ---
ASSUMED CARE APPROX 0700. PT ALERT AND ABLE TO ANSWER YES/NO QUESTIONS. COVID SWAB OBTAINED PER ORDERS. STILL AWAITING RESULTS. GLUCERNA D/C'D. NEPRO STARTED PER ORDERS AND AT GOAL RATE. PT TOLERATED TUBE FEEDING AND DENIES NAUSEA. NO VOMITING NOTED. SR/BBB ON TELE MONITOR.
[2019-12-22 20:02] VITALS: BP 133/59
--- NOTE | 2019-12-23 03:29 | NUR ---
Patient making progress towards outcome goals. Afebrile. BP and rhythm stable, Sinus with BBB, rate controlled on oral Amiodarone. Low urine output. Large output from ileostomy.Tolerating tube feedings. COVID negative on 12/21. Patient from [facility].
[2019-12-23 04:50] VITALS: BP 144/60
[2019-12-23 07:51] VITALS: BP 136/66
[2019-12-23 12:43] LABS: HEMATOCRIT 22.7 % (42.0-52.0); HEMOGLOBIN 7.3 gm/dL (14.0-18.0); MCH 26.9 pg (26.0-34.0); MCHC 32.2 g/dL (28.0-37.0); MCV 83.6 fL (80.0-100.0); RBC 2.71 mil/uL (4.50-6.00); RDW 19.2 % (10.5-14.5); WBC 17.8 thou/uL (4.0-11.0)
[2019-12-23 12:54] LABS: ALBUMIN 1.5 g/dL (3.4-5.0); CALCIUM 7.1 mg/dL (8.5-10.1); CREATININE 5.9 mg/dL (0.7-1.3); MAGNESIUM 1.4 mg/dL (1.8-2.4); PHOSPHORUS 1.2 mg/dL (2.5-4.9); POTASSIUM 5.3 mmol/L (3.5-5.1)
--- NOTE | 2019-12-23 15:33 | NUR ---
NICK reviewed chart and spoke with nursing and attending physician. NICK provided update to [facility] liaison, who confirms they are able to accept pt. Remains in Enhanced Isolation. Pt did have a negative COVID-19 test and a repeat test ordered today. NICK also updated [facility]-acute liaison. NICK spoke with pt's sister, Hernán, via phone to discuss discharge plan. Pt's sister states that she spoke with the renal physician earlier today and meds are being changed. Pt's sister did mention hospice care should pt's condition not improve. NICK is following to assist as needed with discharge planning.
[2019-12-23 15:51] VITALS: BP 138/67
--- NOTE | 2019-12-23 18:01 | NUR ---
RECEIVED PT'S CARE AROUND 0710; PT. ON BED; ALERT; DURING AM ASSESSMENT ALERT TO PERSON; AWAKE; C/O PAIN OVER BLE WHEN TOUCH DURING ASSESSMENT; ST. "HEY" EVERYTIME OFFICE NURSE PRACTITIONER TOUCHING HIM; EDUCATED ABOUT THE NEED OF GETTING MEDICATION; NO ANSWER BACK; MG 1.4; DR. NICOLE NOTIFIED; ORDERS RECEIVED; TURNED FROM SIDE TO SIDE; WOUND CARE PERFORMED; COVID TEST PERFORMED; BOOTS PUT ON; ASSESSMENT CHARGED; FOLLOWING POC; WILL PASS ON REPORT; SISTER REQUESTED TO TALK WITH HOSPITALIST; DR. HOLLINS NOTIFIED DURING ROUNDINGS;
[2019-12-23 19:15] VITALS: BP 130/57
[2019-12-23 19:38] VITALS: BP 149/81
--- NOTE | 2019-12-23 23:15 | NUR ---
ASSUMED CARE AT 1900; PT WAS IN ROOM, APPEARS AGITATED, DID NOT WANT TO COOPERATE WITH CARE AT THIS TIME; WHEN ASKED IF PT IS IN PAIN, PT IS NODS IN AGREEMENT. WHEN ASKED IF PT IS OKAY, PT GIVES THE OKAY SIGN. MEDICAITON WAS ADMINISTERED. PT REACTS BY GRIMACING WHENEVER THE LOWER EXTREMETIES ARE TOUCHED. RN ADMINISTERED ALL MEDICATION, PROVIDED MORPHINE, AND AMBIEN TO PROMOTE COMFORT; ALL IV LINES WERE CHANGED BY RN; WILL NEED TO BE REPLACED ON 12/26, NEW TUBING AND TF BAG HUNG, PT'S OSTOMY SITE APPEARS HEALTHY; BLACK/TARRY STOOL PRESENT IN BAG. NO SIGNIFICANT AMOUNT OF DRAINAGE PRESENT IN THE BAG, URINE IS COLLECTING THROUGH THE DORSEY. PT'S BACK WAS CHECKED, NO REDNESS AT THIS TIME, DRESSING PATCH FROM THE AM IS STILL PRESENT. ZINC OXIDE CREAM APPLIED TO THE BACK FOR SKIN BREAKDOWN PREVENTION.
[2019-12-24 05:57] VITALS: BP 149/71
[2019-12-24 06:19] LABS: ALBUMIN 1.6 g/dL (3.4-5.0); CALCIUM 7.4 mg/dL (8.5-10.1); CREATININE 5.8 mg/dL (0.7-1.3); PHOSPHORUS 0.8 mg/dL (2.5-4.9)
[2019-12-24 06:21] LABS: POTASSIUM 5.6 mmol/L (3.5-5.1)
[2019-12-24 07:32] VITALS: BP 132/73
[2019-12-24 11:07] VITALS: BP 109/66
[2019-12-24] MEDS ORDERED: PACERONE 200 M200 M1 PO (11:25)
[2019-12-24] MEDS ORDERED: ZYVOX600 MG/300 IVPB (11:25)
--- NOTE | 2019-12-24 12:30 | NUR ---
NICK reviewed chart and spoke with nursing and attending physician. Pt remains in Enhance Isolation due to COVID-19. Pt's repeat test yesterday is positive. Per attending physician, pt is medically stable for discharge to [facility] today. SW notified [facility] liaison, who confirms they are able to accept pt. SW provided clinical updates. NICK spoke with pt's sister, Hernán, via phone to discuss discharge plan. Pt's sister states that palliative care/hospice was discussed due to pt's kidney function. Pt is not a candidate for dialysis. Pt's sister would like to see labs tomorrow and then determine if she would like for pt to go to [facility] or initiate palliative care/hospice. Pt's sister was unaware of discharge to LTAC today. NICK updated nursing, attending physician and [facility] liaison. SW to discuss pt's possible return to [facility] with hospice with [facility] post-acute liaison. NICK is following to assist as needed with discharge planning.
[2019-12-24 16:00] VITALS: BP 130/92
--- NOTE | 2019-12-24 17:16 | NUR ---
RECEIVED PT'S CARE AROUND 0710; PT. ON BED; SR ON THE MONITOR; ALERT; DURING ASSESSMENT ALERT TO PERSON; SAID "HI"; ANSWERED "NO" WHEN ASKED IF HAD PAIN; AM MEDICATIONS GIVEN; REMAINED ABOUT THE IMPORTANCE OF TURNING FROM SIDE TO SIDE; REMAINED ABOUT WOUND CARE; THROUGH THE DAY TURNED FROM SIDE TO SIDE; FEEDING BAG CHANGED; TUBE CHANGED; NO RESIDUAL; RECEIVED CALL FROM SISTER EARLY ON THE MORNING; UPDATES GIVEN; REQUESTED TO TALK WITH PHYSICIAN IN ORDER TO TAKE DECISION ABOUT POC, PALLIATE VS HOSPICE; DR. HOLLINS & DR. NICOLE NOTIFIED; D/C ORDERS ON PLACED; ACADEMIC ADVISEMENT DIRECTOR NOTIFIED; PER ACADEMIC ADVISEMENT DIRECTOR REPORT SISTER WERE NOT AWARED OF D/C ORDERS & REQUESTED PT. TO STAY ONE MORE NIGHT IN ORDER TO CHECK AM LABS, KIDNEY FUNCTIONS, TO MAKE A DECISION BETWEEN PALLIATIVE CARE & HOSPICE; CHARLES & CHARGE NURSE NOTIFIED; ASSESSMENT CHARGED; FOLLOWING POC; WILL PASS ON REPORT;
[2019-12-24 19:42] VITALS: BP 126/70
--- NOTE | 2019-12-24 20:57 | NUR ---
ASSUMED CARE FOR THIS PT TODAY; PT IS REFUSING CARE FOR TWO CONSECUTIVE DAYS. GAVE ORAL CARE W/ MOUTHWASH AND SPONGE N SUCTION. PT REFUSED TURNS WELL, BUT GIVEN PT'S MENTATION AND SACRAL ULCER, PT WAS TURNED TO THE L SIDE; PT TENDS TO LEAN TO THE R D/T TUBINGS/LINES/DRAINAGES. PT WAS GRIMACING AND IN PAIN, MORPHINE WAS PROVIDED TO PROMOTE COMFORT WELL. PT WAS SEEN LAST NIGHT RESTLESS; SO AMBIEN WAS PROVIDED WELL. PT IS STABLE AT THIS TIME, VS ARE NORMAL, LUNG SOUNDS UNCHANGED. FEET ARE ELEVATED R/T BLE EDEMA; WILL WATCH THIS PT CLOSELY.
[2019-12-25 03:16] LABS: ALBUMIN 1.8 g/dL (3.4-5.0); CALCIUM 7.4 mg/dL (8.5-10.1); CREATININE 5.9 mg/dL (0.7-1.3); PHOSPHORUS 0.9 mg/dL (2.5-4.9)
[2019-12-25 03:27] LABS: POTASSIUM 6.2 mmol/L (3.5-5.1)
[2019-12-25 05:44] VITALS: BP 110/73
[2019-12-25 07:37] VITALS: BP 106/58
[2019-12-25 08:01] VITALS: BP 106/59
--- NOTE | 2019-12-25 10:01 | NUR ---
Nutrition: RD deferring further evals. Pt is now comfort care.
--- NOTE | 2019-12-25 13:24 | NUR ---
NICK reviewed chart and spoke with nursing and attending physician. Pt was made comfort care this morning. Pt . NICK notified Kasandra of [place] post-acute liaison and [facility] liaison. SW is available to assist should needs arise.
--- NOTE | 2019-12-25 15:49 | HC ---
[facility] [place] [address] CONSULTATION Name: JOHN SWANSON Andres Room #: 350-P [facility] IN M.R.#: [id number] Admission: 12/14/19 Attend Phys: Mart Araya MD Discharge: 12/25/19 Date of : 53 Report #: [id number] THIS REPORT FOR: cc: Jose Eduardo Maria,Ranjit Fallon MD ~ CC: Mart Maria DATE OF SERVICE: 12/23/2019 CHIEF COMPLAINT: Sacral pressure ulceration. HISTORY OF PRESENT ILLNESS: This is a 64-year-old male patient who was admitted to the hospital with fever and confusion. He initially presented with left lower quadrant pain and was noted to have a perisplenic fluid collection on his CT scan. He can provide no information about himself due to significant dysphasia/aphasia. He was noted to have a sacral pressure ulcer and I have been asked to see him with regard to wound care. PAST MEDICAL HISTORY: Significant for urinary tract infection, respiratory failure with hypoxia, healthcare-associated pneumonia, chronic kidney disease, type 2 diabetes mellitus, urethral stricture, Alzheimer's type dementia, dysphasia, anxiety, chronic duodenal ulcer, seizure disorder, contractures of the upper and lower extremities, congestive heart failure, hypertension, atrial fibrillation, cerebrovascular accident with resultant left hemiparesis. History of colon cancer, status post subtotal colectomy and colostomy 11/19/2019 as well as a recent positive COVID test. SOCIAL HISTORY: Negative for known alcohol or tobacco use. FAMILY HISTORY: Unknown. REVIEW OF SYSTEMS: Unobtainable due to the patient's aphasia. MEDICATIONS: Include senna, mupirocin, digestive probiotic, Glucerna, Ultram, ferrous sulfate, albuterol, Depakote, Tylenol, vitamin D3. ALLERGIES: No known drug allergies. PHYSICAL EXAMINATION: VITAL SIGNS: At this time include temperature 37, pulse 79, respiratory rate 24, blood pressure 136/66. GENERAL: This is a chronically ill-appearing male patient who appears to be in minimal distress. HEENT: Head normocephalic. Nose and throat are clear. [facility] [address] [place] [address] CONSULTATION Name: JOHN SWANSON Room #: 350-P [facility] IN [facility].#: [id number] Admission: 12/14/19 Attend Phys: Mart Araya MD Discharge: 12/25/19 Date of : 53 Report #: [id number] NECK: Supple. LUNGS: Diminished. HEART: Regular. ABDOMEN: Soft. SKIN: Pelvic sacral region demonstrates a shallow stage 3 pressure ulceration to the sacral region. There is a little bit of fibrin, some granulation tissue. This is a full thickness injury, but is very, very shallow with no exposure of deep structures. EXTREMITIES: Lower extremities show contractures of upper and lower extremities bilaterally. He is wearing a brace on the left forearm. NEUROLOGIC: The patient is awake, does attempted vocalizations but has severe dysphasia. He is flaccid on the left side. LABORATORY STUDIES: White blood cell count 17.8 with hemoglobin 7.3, hematocrit 22.7, platelet count is 547,000. Sodium 139, potassium 5.3, chloride 107, CO2 of 18, BUN 109, creatinine 5.9, glucose 115, albumin is very low at 1.5. CLINICAL IMPRESSION: 1. Stage 3 sacral pressure ulceration. 2. Gram-positive bacteremia with Coag-negative staph. 3. Pneumonia. 4. Perisplenic hematoma. 5. Diabetes type 2. 6. Severe protein-calorie malnutrition with albumin 1.5. RECOMMENDATIONS: At this point in time, the patient will need a low air loss mattress with q. 2 hour turning positioning. We will recommend PRAFO boots for pressure prophylaxis to both heels. We will recommend zinc oxide barrier cream to the sacral ulcer, covered by bordered foam dressing to be changed daily. He will need ongoing and aggressive nutritional support to maximize his chances for wound healing. I appreciate being asked to see the patient in consultation. <ELECTRONICALLY SIGNED> By: Ranjit Joiner MD 12/25/19 [id number] Ranjit Joiner MD /nt
--- NOTE | 2019-12-27 07:27 | HC ---
[facility] [place] [address] CONSULTATION Name: JOHN SWANSON Room #: 350-P [facility] IN M.R.#: [id number] Admission: 12/14/19 Attend Phys: Mart Araya MD Discharge: 12/25/19 Date of : 53 Report #: [id number] THIS REPORT FOR: cc: Jose Eduardo Maria,Carmel Calderon MD ~ CC: Mart Maria REASON FOR CONSULTATION: Acute kidney injury. REASON FOR PRESENTATION: Confusion and fever. HISTORY OF PRESENT ILLNESS: This is a 64-year-old who presented from his nursing facility on the with confusion, fever, hypoxia. The patient has previously had some laboratory values as of 11/2019 and most of his creatinine values were in the normal range. The patient was admitted for further evaluation and management and was found to have prostate enlargement, abdominal abscess, left-sided ostomy, kidney masses on his CT. Of notice is the fact that the CT revealed that there is a large calculus in the left renal collecting system. There is also a possible mass, which is definitely not cystic in the medial anterior right kidney measuring 2.4 x 1.5 cm. There was a second mass seen inferiorly and laterally. The patient developed hypotension and had an abscess drainage by the Interventional Radiology. Currently, he tested positive for COVID-19. He is currently being treated accordingly and is followed by Cardiology and Infectious Disease. The patient has history of colon cancer, status post subtotal colectomy and PEG tube placement. I was consulted to manage his acute kidney injury as the patient's creatinine continued to rise from a level of 1.0-5.5 as of this morning. This is complicated by hyperkalemia. PAST MEDICAL HISTORY: Extensive and includes the followin. COVID-19. 2. Seizure disorder. 3. Status post colectomy. 4. Bowel obstruction. 5. Urethral strictures. 6. Recurrent episodes of respiratory failure and severe sepsis. 7. Diabetes mellitus. 8. Alzheimer's. MEDICATIONS: Currently, the patient is maintained on the followin. Amiodarone. 2. Dexamethasone. 3. Lovenox. 4. Linezolid. 5. Morphine. [address] [address] CONSULTATION Name: JOHN SWANSON Room #: 350-P [facility].#: [id number] Admission: 12/14/19 Attend Phys: Mart Araya MD Discharge: 12/25/19 Date of : 53 Report #: [id number] 6. Piperacillin. 7. Sodium bicarbonate. 8. Valproic acid. SOCIAL HISTORY: Resides in a nursing facility. No drug or alcohol abuse. FAMILY HISTORY: Hypertension. REVIEW OF SYSTEMS: GENERAL: Significant for fever and weakness. CARDIOVASCULAR: Significant for his usual baseline shortness of breath. PULMONARY: No cough or hemoptysis, baseline shortness of breath. GASTROINTESTINAL: As per history of present illness. GENITOURINARY: No urine output. PHYSICAL EXAMINATION: GENERAL: He is on the CPAP machine. Blood pressure is 108/47, pulse rate is 72, temperature is 36.8. HEAD AND NECK: Utilizing the CPAP machine. CHEST: Decreased air entry bilaterally. CARDIOVASCULAR: No rub detected. ABDOMEN: Soft with ileostomy, drainage tube. EXTREMITIES: Lower extremities, no edema. LABORATORY DATA: From today revealed a white blood cell count of 15.3, platelet of 443. Sodium 138, potassium 5.6, BUN is 82, creatinine 5.5. IMPRESSION AND PLAN: 1. Acute kidney injury due to acute tubular necrosis. 2. COVID-19. 3. Gram-positive bacteremia. 4. Atrial fibrillation. 5. Status post subtotal colectomy. 6. Postoperative intra-abdominal abscess. 7. Perisplenic hematoma. 8. Hyperkalemia. 9. Obstructive uropathy on the left side. 10. Urethral stricture. 11. Potential kidney masses. 12. A 64-year-old with multiple comorbid conditions and COVID-19 infection. This is complicated by acute kidney injury. First and most important at this point is to rule out obstructions given his CT finding. I will order an ultrasound on the patient. 13. Continue with IV fluid. 14. Treat his hyperkalemia. 15. He has history of urethral strictures and we will have to place a [address] [place] [address] CONSULTATION Name: KIKIJOHN P Room #: 350-P [facility] IN ..#: [id number] Admission: 12/14/19 Attend Phys: Mart Araya MD Discharge: 12/25/19 Date of : 53 Report #: [id number] catheter. 16. He is a DNR status. His DNR status would complicate the management when it comes to his kidney issues. I will discuss those issues with him. 17. He is currently being followed by Infectious Disease for his sepsis and they are adjusting his antibiotics. He is also being treated for COVID-19. <ELECTRONICALLY SIGNED> By: Carmel Coleman MD 12/27/19 0727 [id number] Carmel Coleman MD /nt
== END 2019-12-25 14:21 | DRG 871 ==
LOC: ER 01:19 → 3W 05:08 → EROBS 05:08 → 3W 06:58
PROVIDERS: Emergency Medicine; Hospitalist; Nurse Practitioner Family; Specialist; ADMIT Hospitalist; ATTEND Hospitalist
PROC: 0WJF3ZZ Inspection of Abdominal Wall, Percutaneous Approach (ICD-10-PCS; principal; 2019-12-17)
DX: A41.1 Sepsis due to other specified staphylococcus (principal); U07.1 COVID-19; L89.153 Pressure ulcer of sacral region, stage 3; K65.1 Peritoneal abscess; E43 Unspecified severe protein-calorie malnutrition; N17.0 Acute kidney failure with tubular necrosis; J12.89 Other viral pneumonia; J96.90 Respiratory failure, unspecified, unspecified whether with hypoxia or hypercapnia; T81.43XA Infection following a procedure, organ and space surgical site, initial encounter; S36.029A Unspecified contusion of spleen, initial encounter; E87.0 Hyperosmolality and hypernatremia; I48.92 Unspecified atrial flutter; I47.1 Supraventricular tachycardia; M31.9 Necrotizing vasculopathy, unspecified; I69.354 Hemiplegia and hemiparesis following cerebral infarction affecting left non-dominant side; I13.0 Hypertensive heart and chronic kidney disease with heart failure and stage 1 through stage 4 chronic kidney disease, or unspecified chronic kidney disease; G30.9 Alzheimer's disease, unspecified; G40.909 Epilepsy, unspecified, not intractable, without status epilepticus; F02.80 Dementia in other diseases classified elsewhere, unspecified severity, without behavioral disturbance, psychotic disturbance, mood disturbance, and anxiety; F41.9 Anxiety disorder, unspecified; E87.5 Hyperkalemia; I48.91 Unspecified atrial fibrillation; N13.9 Obstructive and reflux uropathy, unspecified; N35.919 Unspecified urethral stricture, male, unspecified site; Z66 Do not resuscitate; N18.9 Chronic kidney disease, unspecified; E11.22 Type 2 diabetes mellitus with diabetic chronic kidney disease; E86.0 Dehydration; I95.9 Hypotension, unspecified; K21.9 Gastro-esophageal reflux disease without esophagitis; Z93.3 Colostomy status; Z90.49 Acquired absence of other specified parts of digestive tract; Z85.038 Personal history of other malignant neoplasm of large intestine; Z93.2 Ileostomy status; Z82.49 Family history of ischemic heart disease and other diseases of the circulatory system; Z79.899 Other long term (current) drug therapy; Z51.5 Encounter for palliative care
CPT/HCPCS: 10779; 10879